=== PATIENT | male | born 1945 | race Caucasian/White ===

== ENCOUNTER 2019-04-08 10:00 | Outpatient (CLI) | payer BC, MEDICARE, SELFPAY ==
--- NOTE | ~2019-04-08 | CT_ITS ---
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 The dose-length product (DLP) was 168.81 mGy-cm. Ite rative reconstruction was used. COMPARISON: 01/14/2019 FINDINGS: There are surgical changes of esophagectomy and gastric pull-through. There is severe emphy sema. A 9 mm subpleural nodule of the right lower lobe previously measured 5 mm (image 91). There is no pleural effusion or pneumothorax. A right internal jugular Port-A-Cath ends with its tip at the torres perior cavoatrial junction. No pathologically enlarged thoracic lymph nodes are identified. The heart size is normal. Calcified coronary artery atherosclerosis is noted. There is ingested material withi n the intrathoracic portion of the stomach. A stent of the distal stomach has been removed. There is a partially imaged abdominal aortic endoluminal stent. A stent is also seen at the origin of the supe rior mesenteric artery. Changes related to thoracotomy are noted in several right ribs posteriorly. IMPRESSION: 1. Interval enlargement of a subpleural nodule of the right lower lobe concerning for metastatic dise ase. 2. Severe emphysema. 3. Changes of esophagectomy and gastric pull-through. Reviewed, dictated and finalized at location A. BER SUPERVISOR IMPRESSION: 1. Interval enlargement of a subpleural nodule of the right lower lobe concerni ng for metastatic disease. 2. Severe emphysema. 3. Changes of esophagectomy and gastric pull-through.
== END 2019-04-08 10:01 | disposition home or self-care (01) ==
LOC: ANHIMG 10:06
PROVIDERS: Visit Provider Internal Medicine Hematology & Oncology
DX: C15.5 Malignant neoplasm of lower third of esophagus (principal); J43.9 Emphysema, unspecified; R91.1 Solitary pulmonary nodule
CPT/HCPCS: 71260; Q9967

== ENCOUNTER 2019-04-16 10:54 | Outpatient (CLI) | payer BC, MEDICARE, SELFPAY ==
--- NOTE | ~2019-04-16 | PE_ITS ---
EXAMINATION: PET skull to mid thigh DATE: 04/16/2019 14:39 INDICATION: Solitary pulmonary nodule. Malignant neoplasm of lower third of esophagus. TECHNIQUE: Blood glucose level was 115 mg/dL. 8.475 mCi of 18-fluorodeoxyglucose (18-FDG) was adminis tered i.v. Low dose computed tomography (CT) images were acquired from the base of the brain to the p roximal thighs for attenuation correction and anatomic localization. Automated exposure control was e mployed. Dose-length product (DLP) was 348 mGy-cm. Positron emission tomography (PET) images were acq uired in the same distribution. COMPARISON: Chest CT 04/08/2019, 01/14/2019, PET CT 01/28/2018 FINDINGS: Head/neck: There is increased activity in the oral cavity, oropharynx, floor of mouth, and glottis wi thout CT correlate, likely physiologic. There are no pathologically enlarged lymph nodes. Chest: There is severe emphysema. Calcified pulmonary nodules and calcified hilar lymph nodes are con sistent with old granulomatous disease. There is a 9 mm nodule in right lower lobe with maximum SUV o f 2.2. There is mild scarring at the lung apices. No pleural effusion. The heart size is normal. Ther e are coronary artery calcifications. No pericardial effusion. There is ectasia of ascending aorta me asuring 4.7 cm. There are changes of esophagectomy and gastric pull-through. There is a right interna l jugular port with tip at superior cavoatrial junction. Abdomen/pelvis/proximal thighs: The liver is normal. Calcifications in the spleen are consistent with old granulomatous disease. The pancreas, adrenal glands are normal. There is severe atrophy of right kidney. There are cysts in the kidneys measuring up to 2.7 cm on the right. There is a 6.6 cm fusifo rm aneurysm of infrarenal aorta with stent graft in expected position. There are stents in superior m esenteric artery and left renal artery. The prostate is mildly enlarged. There are no dilated loops o f bowel. There are no pathologically enlarged lymph nodes. There is no free intraperitoneal fluid. Th ere are changes of anterior and posterior fusion procedures in lumbar spine. IMPRESSION: 1. 9 mm pulmonary nodule with maximum SUV of 2.2, increased from 5 mm on 01/14/2019, most likely benig n. Noncontrast chest CT is recommended in 3 months. 2. Severe emphysema. 3. 6.6 cm fusiform aneurysm of infrarenal aorta with stent graft in expected position, decreased from 8.1 cm on 01/28/2018. Reviewed, dictated and finalized at location A. ERN MAKER PROGRAMER IMPRESSION: 1. 9 mm pulmonary nodule with maximum SUV of 2.2, increased from 5 mm on 019, most likely benign. Noncontrast chest CT is recommended in 3 months. 2. Severe emphysema. 3. 6.6 cm fusiform aneurysm of infrarenal aorta with stent graft in expected po sition, decreased from 8.1 cm on 01/28/2018.
[2019-04-16 11:31] LABS: Glucose Point of Care 115 (65-105)
== END 2019-04-16 10:55 | disposition home or self-care (01) ==
PROVIDERS: Visit Provider Radiology Radiation Oncology
DX: C15.5 Malignant neoplasm of lower third of esophagus (principal); R91.1 Solitary pulmonary nodule; J43.9 Emphysema, unspecified; I71.4 Abdominal aortic aneurysm, without rupture; Z96.0 Presence of urogenital implants
CPT/HCPCS: 78815; A9552

== ENCOUNTER 2019-07-21 13:00 | Outpatient (CLI) | payer BC, MEDICARE, SELFPAY ==
--- NOTE | ~2019-07-21 | CT_ITS ---
EXAMINATION: CT chest wo con EXAM DATE: 07/21/2019 13:52 INDICATION: Kidney, skin, esophageal cancer. Enlarging right lower lobe subpleural nodule. TECHNIQUE: Spiral CT of the chest without contrast. Axial, coronal and sagittal images were reviewe d. Coronal maximum intensity pixel images of chest reviewed. The dose-length product (DLP) for this examination was 184.92 mGy-cm. The exposure was tailored according to patient size (auto mA exposur e control), and iterative reconstruction (ASIR) was used as additional dose reduction technique. Comp arison is made to prior examination from 03/17/2018, 04/08/2019. FINDINGS: There is been continued interval enlargement of the right lower lobe nodule, now abuts the pleura and measures 7 x 9 mm, has some lobulation, spiculation, likely malignancy. There are scatter ed calcified granulomas. There is moderate to severe emphysema. Right-sided Chemo-Port with intact li ne. There are no pleural or pericardial effusions. Tracheobronchial tree is patent. There is no mediastinal, hilar or axillary lymphadenopathy. There is no pneumothorax. Heart normal in size. T he ascending aorta measures 4.7 cm at the level of the right main pulmonary artery, unchanged. There is moderate coronary arterial calcification, arterial sclerosis. There is gastric pull-through. Ther e is upper abdominal endograft, celiac and left renal artery stents. Stimulator pack in the right pos terior paraspinal musculature. There is mild thoracic spondylosis without osteoblastic or osteolytic lesions identified. IMPRESSION: 1. Increase in size of lobular spiculated right lower lobe nodule likely malignant/metastatic. 2. Moderate to severe emphysema. 3. Ascending aortic aneurysm. 4. Surgical changes. Reviewed, dictated and finalized at location A. IMPRESSION: 1. Increase in size of lobular spiculated right lower lobe nodule likely malig nant/metastatic. 2. Moderate to severe emphysema. 3. Ascending aortic aneurysm. 4. Surgical changes.
== END 2019-07-21 13:01 | disposition home or self-care (01) ==
PROVIDERS: PCP Internal Medicine; Visit Provider Radiology Radiation Oncology
DX: C15.5 Malignant neoplasm of lower third of esophagus (principal); R91.1 Solitary pulmonary nodule; J43.9 Emphysema, unspecified; I71.2 Thoracic aortic aneurysm, without rupture
CPT/HCPCS: 71250

== ENCOUNTER 2019-08-04 09:17 | Outpatient (CLI) | payer BC, MEDICARE, SELFPAY ==
[2019-08-04 09:38] LABS: Mean Platelet Volume 9.3 fl (7.4-10.4); Platelet Count Result 162 k/mm3 (150-375)
== END 2019-08-04 09:18 | disposition home or self-care (01) ==
PROVIDERS: PCP Internal Medicine; Visit Provider Radiology Radiation Oncology
DX: R91.8 Other nonspecific abnormal finding of lung field (principal)
CPT/HCPCS: 36415; 85049; 85610

== ENCOUNTER 2019-08-07 11:32 | Outpatient (CLI) | payer BC, MEDICARE, SELFPAY ==
[2019-08-07] VITALS (12 sets, daily range): BP systolic 115–141; BP diastolic 74–100; PULSE 54–61; RESP 14–16; O2SAT 96–100
--- NOTE | ~2019-08-07 | XR_ITS ---
EXAMINATION: XR chest 1V portable INDICATION: Postbiopsy pneumothorax TECHNIQUE: Portable AP chest at 1701 hours COMPARISON: 1505 hours FINDINGS: A tiny right-sided pneumothorax persists which appears to slightly increase in volume with a more visible pleural line seen in the lateral aspect of the lower right thorax. No focal airspace o pacities are identified. There is no pleural effusion. The cardiomediastinal silhouette is normal. A right internal jugular Port-A-Cath ends with its tip in the distal superior vena cava. There is a par tially imaged endoluminal abdominal aortic stent graft. IMPRESSION: 1. Tiny right-sided pneumothorax with slight increase in size. Reviewed, dictated and finalized at location A.
--- NOTE | ~2019-08-07 | CT_ITS ---
EXAMINATION: CT biopsy lung DATE: 08/07/2019 14:16 INDICATION: Right lower lobe nodule TECHNIQUE: The procedure including the risks and benefits was discussed with the patient. Risks discu ssed included infection, approximately 1/20 risk of symptomatic hemorrhage beyond mild hemoptysis, ap proximately 1/3 risk of pneumothorax, and approximately 1/10 risk of pneumothorax severe enough to wa rrant chest tube placement. The patient understood the risks and agreed to proceed. The patient was p laced prone. The skin overlying the posterior right thorax was prepped and draped in sterile fashion . Anesthetic was administered with 1% lidocaine subcutaneously. A 19 gauge outer needle was advance d under CT guidance to the lesion of interest. A 20 gauge core biopsy needle was then used to obtain 3 core biopsy specimens. Scant tissue was obtained on the first biopsy and possibly on the second bio psy. There was no resistance to advancement of the biopsy needle in the third attempted biopsy with n o discernible tissue. CT images obtained after the third biopsy demonstrated development of a small r ight pneumothorax with retraction of the long from the guide needle tip. The pneumothorax was manuall y aspirated and repeat CT images were obtained which demonstrated decrease in the rate of pneumothora x accumulation. The pneumothorax was again manually aspirated and the needle removed. A sterile dress ing was applied and the patient placed in supine position. Patient's oxygen saturations remained 98-9 9% on room air throughout. No pneumothorax is discernible on the subsequent post procedure chest radi ograph. The dose-length product was 213.22 mGy-cm. FINDINGS: CT images demonstrate the outer needle tip was within approximately 1 cm subpleural nodule at the periphery of the right lower lobe. Final images demonstrate a small right pneumothorax. Severe emphysema.. IMPRESSION: 1. Successful CT-guided biopsy of a 1 cm right lower lobe nodule yielding scant tissue. Additional ti ssue was unable to be obtained due to the development of a small right pneumothorax which was manuall y aspirated through the guide needle. Reviewed, dictated and finalized at location A. IMPRESSION: 1. Successful CT-guided biopsy of a 1 cm right lower lobe nodule yielding scant tissue. Additional tissue was unable to be obtained due to the development of a small right pneumothorax which was manually aspirated through the guide needl e.
--- NOTE | ~2019-08-07 | XR_ITS ---
EXAMINATION: XR chest 1V portable DATE: 08/07/2019 15:04 INDICATION: Status post percutaneous biopsy of a right lower lobe nodule. TECHNIQUE: frontal view of the chest was obtained. COMPARISON: Chest radiograph dated 08/07/2019 at 1:49 PM FINDINGS: Tiny right apical pneumothorax with 5 mm separation between the pleural margins. Emphysema. Subtle no dular opacity projecting over the posterior right ninth rib corresponding to the biopsied lesion and concerning for malignancy. No pleural effusion or left-sided pneumothorax. The cardiomediastinal silh ouette is normal. No interval change in the previously described postoperative changes. IMPRESSION: 1. Very small right apical pneumothorax. 2. Right lower lobe nodule concerning for malignancy. 3. Emphysema. Reviewed, dictated and finalized at location A.
--- NOTE | ~2019-08-07 | XR_ITS ---
EXAMINATION: XR chest 1V DATE: 08/07/2019 13:52 INDICATION: Status post percutaneous biopsy of a right lower lobe nodule TECHNIQUE: frontal view of the chest was obtained. COMPARISON: Chest radiograph dated 09/22/[address] dated 07/31/2019 FINDINGS: Hyperexpansion of lungs with increased lucency and architectural distortion consistent with emphysema . Subtle nodular opacity projecting over the right posterior ninth rib likely representing the biopsi ed nodule of concern. There are few small scattered calcified pulmonary nodules along with calcified bilateral hilar lymph nodes consistent with old granulomatous disease. No other focal airspace opaci ties, pulmonary edema, pleural effusion or pneumothorax. The cardiomediastinal silhouette is normal. Right internal jugular central venous port catheter with distal tip at the caudal superior vena cava. Cephalad portion of an abdominal aortic endoluminal stent graft is seen at the level of the thoracic hiatus. An electronic device projects over the lower thoracic spine. A few old lateral right rib fra ctures, one with plate and screw fixation. Surgical clips project over the posterior mediastinum like ly related to prior esophagectomy and gastric pull-through. IMPRESSION: 1. No visible pneumothorax or other acute cardiopulmonary disease post biopsy of a right lower lobe n odule which is concerning for primary bronchogenic carcinoma. Reviewed, dictated and finalized at location A. IMPRESSION: 1. No visible pneumothorax or other acute cardiopulmonary disease post biopsy o f a right lower lobe nodule which is concerning for primary bronchogenic carcin maru.
--- NOTE | ~2019-08-07 | XR_ITS ---
EXAMINATION: XR chest 1V portable INDICATION: Postbiopsy pneumothorax TECHNIQUE: Portable AP chest at 1802 hours COMPARISON: 1701 hours FINDINGS: The previously described right-sided pneumothorax is no longer evident. The lungs are free of acute opacities. There is no pleural effusion. A right internal jugular Port-A-Cath ends with its tip in the distal superior vena cava. There is a partially imaged abdominal aortic stent graft. The c ardiomediastinal silhouette is normal. IMPRESSION: 1. No persistent pneumothorax identified. Reviewed, dictated and finalized at location A.
--- NOTE | 2019-08-07 17:28 | SUR.PHASEII ---
[address] ames about last chest xray, pt doesn't meet discharge criteria will do another chest xray at 1800
--- NOTE | 2019-08-07 18:42 | SUR.PHASEII ---
1800: Dr. Prado said most recent chest x-ray improved from the last one and patient was ok to discharge home. IV was d/c and discharge instructions were given to patient. , Rosa, was contacted to come and pick patient up at main entrance of hospital.
== END 2019-08-07 11:33 | disposition home or self-care (01) ==
PROVIDERS: Radiology Diagnostic Radiology; PCP Internal Medicine; Visit Provider Radiology Radiation Oncology
DX: R91.1 Solitary pulmonary nodule (principal)
CPT/HCPCS: 32405; 71045; 77012; 88305

== ENCOUNTER 2019-09-01 09:05 | Outpatient (CLI) | payer BC, MEDICARE, SELFPAY ==
--- NOTE | ~2019-09-01 | PE_ITS ---
EXAMINATION: PET skull to mid thigh DATE: 09/01/2019 11:20 INDICATION: Mass of lower lobe of right lung. Esophageal cancer. TECHNIQUE: Blood glucose level was 100 mg/dL. 9.645 mCi of 18-fluorodeoxyglucose (18-FDG) was adminis tered i.v. Low dose computed tomography (CT) images were acquired from the base of the brain to the p roximal thighs for attenuation correction and anatomic localization. Automated exposure control was e mployed. Dose-length product (DLP) was 339 mGy-cm. Positron emission tomography (PET) images were acq uired in the same distribution. COMPARISON: PET CT 04/16/2019, 01/28/18 FINDINGS: Head/neck: There is increased activity in the oral pharynx, oral cavity, sublingual glands, and glott is without CT correlate, likely physiologic. There are no pathologically enlarged lymph nodes. Chest: There is moderate emphysema. Calcified pulmonary nodules and calcified hilar and mediastinal l ymph nodes are consistent with old granulomatous disease. There is a 1.1 cm nodule in right lung lowe r lobe with maximum SUV of 2.4. No pleural effusion. The heart size is normal. There are coronary art brittany calcifications. There is ectasia of ascending aorta measuring 4.4 cm. There is a right internal j ugular port with tip at superior cavoatrial junction. There are old right rib fractures. Abdomen/pelvis/proximal thighs: The liver and gallbladder are normal. Calcifications in the spleen ar e consistent with old granulomatous disease. The pancreas, and adrenal glands are normal. There is mo derate atrophy of right kidney. There are cysts in the kidneys measuring up to 2.1 cm on the right. T here is a 1.9 cm hyperdense mass in right kidney. There is a 6.4 cm fusiform infrarenal aortic aneury sm with stent graft in expected position. The prostate is mildly enlarged. There are no dilated loops of bowel. There are changes of esophagectomy and gastric pull-through procedure. There are no pathol ogically enlarged lymph nodes. There is no free intraperitoneal fluid. There are changes of anterior and posterior fusion procedures in lumbar spine. A bone stimulator is noted. IMPRESSION: 1. 1.1 cm nodule in right lung lower lobe with maximum SUV of 2.4 and recent nondiagnostic biopsy, in creased from 0.9 cm on 04/16/19. This finding is indeterminate for malignancy. 2. Moderate emphysema. 3. 1.9 cm hyperdense right kidney mass, stable from 01/28/18. This finding may be a hemorrhagic cyst or less likely a solid neoplasm. Abdomen CT without and with contrast is recommended. 4. 6.4 cm fusiform infrarenal aortic aneurysm with stent graft in expected position, stable from 2019. Reviewed, dictated and finalized at location A. IMPRESSION: 1. 1.1 cm nodule in right lung lower lobe with maximum SUV of 2.4 and recent no ndiagnostic biopsy, increased from 0.9 cm on 04/16/19. This finding is indetermin ate for malignancy. 2. Moderate emphysema. 3. 1.9 cm hyperdense right kidney mass, stable from 01/28/18. This finding may be a hemorrhagic cyst or less likely a solid neoplasm. Abdomen CT without and w ith contrast is recommended. 4. 6.4 cm fusiform infrarenal aortic aneurysm with stent graft in expected posi tion, stable from 04/16/2019.
[2019-09-01 09:41] LABS: Glucose Point of Care 100 (65-105)
== END 2019-09-01 09:06 | disposition home or self-care (01) ==
PROVIDERS: PCP Internal Medicine; Visit Provider Radiology Radiation Oncology
DX: C15.5 Malignant neoplasm of lower third of esophagus (principal); N28.89 Other specified disorders of kidney and ureter; R91.8 Other nonspecific abnormal finding of lung field; J43.9 Emphysema, unspecified; I71.4 Abdominal aortic aneurysm, without rupture
CPT/HCPCS: 78815; A9552

== ENCOUNTER 2019-10-29 11:53 | Outpatient (CLI) | payer BC, MEDICARE, SELFPAY ==
[2019-10-29 12:33] LABS: Basophils Absolute Auto 0.1 K/mm3 (0.0-0.1); Basophils Percent Auto 0.9 % (0.2-1.2); Eosinophils Absolute Auto 0.6 K/mm3 (0-0.3); Eosinophils Percent Auto 8.1 % (0-4.4); Hematocrit 42.3 % (42.0-52.0); Hemoglobin 13.7 g/dL (14.0-18.0); Immature Granulocyte Absolute 0.01 K/mm3 (0.00-0.031); Immature Granulocyte Percent A 0.1 % (0-0.5); Lymphocytes Absolute Auto 1.22 K/mm3 (0.9-3.2); Lymphocytes Percent Auto 15.9 % (18.3-44.2); Mean Corpuscular HGB Conc 32.4 g/dl (32-36); Mean Corpuscular Volume 92.6 fl (80-100); Mean Platelet Volume 9.2 fl (7.4-10.4); Monocytes Absolute Auto 0.8 K/mm3 (0.1-0.6); Monocytes Percent Auto 10.2 % (2.6-8.5); Neutrophils Percent Auto 64.8 % (45.5-73.1); Platelet Count Result 234 k/mm3 (150-375); Red Blood Count 4.57 M/mm3 (4.6-6.20); Red Cell Distribution Width 14.7 % (11.5-14.5); White Blood Count 7.7 K/mm3 (4.5-10.0)
[2019-10-29 15:12] LABS: Alanine Aminotransferase 16 U/L (4-50); Albumin Level 4.6 g/dL (3.5-5.1); Alkaline Phosphatase 123 U/L (38-126); Anion Gap 8 mmol/L (8-16); Aspartate Amino Transferase 23 U/L (17-59); Bilirubin,Total 0.6 mg/dL (0.2-1.3); Blood Urea Nitrogen 13 mg/dL (9-20); Calcium 9.8 mg/dL (8.4-10.2); Carbon Dioxide 29 mmol/L (22-30); Chloride 98 mmol/L (98-107); Estimated Glomerular Filt Rate 59; Glucose 100 mg/dL (75-110); Potassium 4.7 mmol/L (3.4-5.0); Sodium 135 mmol/L (137-145)
[2019-10-29 15:24] LABS: Free T4 Free Thyroxine 1.53 ng/mL (0.78-2.19)
[2019-11-02 21:25] LABS: Vitamin D 1,25 (OH)2 Total 39 pg/mL (18-72); Vitamin D2 1,25 (OH)2 <8 pg/mL; Vitamin D3 1,25 (OH)2 39 pg/mL
[2019-11-03 05:48] LABS: Homocysteine 32.5 umol/L (<11.4)
== END 2019-10-29 11:54 | disposition home or self-care (01) ==
PROVIDERS: PCP Internal Medicine; Visit Provider Internal Medicine
DX: E55.9 Vitamin D deficiency, unspecified (principal); R79.89 Other specified abnormal findings of blood chemistry; E03.9 Hypothyroidism, unspecified; I10 Essential (primary) hypertension
CPT/HCPCS: 36415; 80053; 82652; 83090; 84439; 84443; 85025

== ENCOUNTER 2019-12-01 13:43 | Outpatient (CLI) | payer BC, MEDICARE, SELFPAY ==
[2019-12-01 14:40] LABS: Cholesterol 152 mg/dL (0-200); HDL Direct 57 mg/dL; Triglycerides 167 mg/dL (<150)
[2019-12-01 14:51] LABS: LDL Cholesterol Direct 67 mg/dL
[2019-12-01 15:12] LABS: Thyroid Stimulating Hormone 0.022 uIU/mL (0.465-4.680)
== END 2019-12-01 13:44 | disposition home or self-care (01) ==
PROVIDERS: PCP Internal Medicine; Visit Provider Internal Medicine Hematology & Oncology
DX: Z79.899 Other long term (current) drug therapy (principal); E78.2 Mixed hyperlipidemia
CPT/HCPCS: 36415; 80061; 84443

== ENCOUNTER 2019-12-09 10:23 | Outpatient (CLI) | payer BC, MEDICARE, SELFPAY | END 2019-12-09 10:24 | disposition home or self-care (01) | LOC: ANHLAB 10:25 | PROVIDERS: PCP Internal Medicine; Visit Provider Internal Medicine | DX: E03.9 Hypothyroidism, unspecified (principal); Z79.899 Other long term (current) drug therapy | CPT/HCPCS: 36415; 84439 ==

== ENCOUNTER 2019-12-14 12:58 | Outpatient (CLI) | payer BC, MEDICARE, SELFPAY ==
--- NOTE | ~2019-12-14 | CT_ITS ---
EXAMINATION:CT chest w con DATE: 12/14/2019 14:02 INDICATION: Malignant neoplasm of lower third of esophagus. TECHNIQUE: Computed tomography (CT) of the chest was performed with 100 mL Omnipaque 350 intravenous contrast. Automated exposure control and iterative reconstruction technique were employed. The dose-l ength product (DLP) was 494.38 mGy-cm. COMPARISON: PET CT 09/01/2019, 04/16/19 FINDINGS: There is severe emphysema. There is a 1.1 cm nodule in right lower lobe. Calcified pulmonar y nodules and calcified hilar and mediastinal lymph nodes are consistent with old granulomatous disea se. No pleural effusion. There is a right internal jugular port with tip at superior cavoatrial junct ion. There are changes of esophagectomy and gastric pull-through procedure. There is a stent at the g astroesophageal junction. There is ectasia of ascending aorta measuring 4.5 cm. The heart size is nor mal. There are coronary artery calcifications. No pericardial effusion. There is mild thoracic spondy losis. There are changes from right-sided thoracotomy. There is plate and screw fixation of a rib. IMPRESSION: 1. 1.1 cm nodule in right lower lobe, stable from 09/01/2019 and increased from 0.9 cm on 04/16/19 with maximum SUV of 2.4 on 09/01/19. This finding is indeterminate for malignancy. 2. Severe emphysema. Reviewed, dictated and finalized at location A. OWS DESKTOP SUPPORT IMPRESSION: 1. 1.1 cm nodule in right lower lobe, stable from 09/01/2019 and increased from 0.9 cm on 04/16/19 with maximum SUV of 2.4 on 09/01/19. This finding is indetermin ate for malignancy. 2. Severe emphysema.
--- NOTE | ~2019-12-14 | CT_ITS ---
EXAMINATION: CT abdomen wo/w con DATE: 12/14/2019 14:00 INDICATION: Right kidney mass. TECHNIQUE: Computed tomography (CT) of the abdomen was performed without and with 100 mL Omnipaque 35 0 intravenous contrast. Automated exposure control and iterative reconstruction technique were employ ed. The dose-length product was 494.38 mGy-cm. COMPARISON: PET CT 09/01/2019 FINDINGS: There is 8 mm cyst in the liver. The gallbladder is normal. Calcifications in the spleen ar e consistent with old granulomatous disease. The pancreas and adrenal glands are normal. There is sev ere atrophy of right kidney. There are cysts in the kidneys measuring up to 2.7 cm on the right. Ther e is a 2.0 cm hemorrhagic cyst in right kidney. There is a 6.2 cm fusiform aneurysm of infrarenal aor ta with stent graft in expected position. Partially visualized is a stent in right common iliac arter y. There are stents in left renal artery and superior mesenteric artery. There are no dilated loops o f bowel. There are changes of esophagectomy and gastric pull-through procedure. There are no patholog ically enlarged lymph nodes. There is no free intraperitoneal fluid. There is severe lumbar spondylos is. There are changes of posterior fusion procedure in lumbar spine. A bone stimulator is noted. IMPRESSION: 1. Benign cysts in the kidneys. 2. Stable 6.2 cm fusiform aneurysm of infrarenal aorta with stent graft in expected. Reviewed, dictated and finalized at location A. AVER PANTOGRAPH IMPRESSION: 1. Benign cysts in the kidneys. 2. Stable 6.2 cm fusiform aneurysm of infrarenal aorta with stent graft in expe cted.
== END 2019-12-14 12:59 | disposition home or self-care (01) ==
LOC: ANHIMG 13:02
PROVIDERS: PCP Internal Medicine; Visit Provider Radiology Radiation Oncology
DX: C15.5 Malignant neoplasm of lower third of esophagus (principal); R91.8 Other nonspecific abnormal finding of lung field; J43.9 Emphysema, unspecified; N28.1 Cyst of kidney, acquired; I71.4 Abdominal aortic aneurysm, without rupture
CPT/HCPCS: 71260; 74170; Q9967

== ENCOUNTER 2020-03-17 13:07 | Outpatient (CLI) | payer BC, MEDICARE, SELFPAY ==
--- NOTE | ~2020-03-17 | CT_ITS ---
EXAMINATION: CT diagnostic chest w con DATE: 03/17/2020 14:23 INDICATION: Cancer distal third of the esophagus TECHNIQUE: Computed tomography (CT) of the chest was performed with 75 cc Omnipaque 350 intravenous c ontrast. The dose-length product was 163.44 mGy-cm. Automated exposure control and iterative reconstr uction technique were employed. COMPARISON: CT dated 12/14/2019 FINDINGS: There are surgical changes of esophagectomy with gastric pull-through. There is a stent at the gastroesophageal junction 3 contained in the stents. There is stable ectasia of the ascending tho racic aorta measuring 4.5 cm. Heart size is normal. There are liver and left renal cysts. There are s cattered calcified granulomas. Severe emphysema. Enlarging 1.4 cm right lower lobe nodule with spicul ated margins, likely malignant. This is increased bone 0.9 cm on 04/16/2019. No endobronchial lesions. No osteolytic or osteoblastic lesion. Partially visualized abdominal aortic endovascular stent noted. There is a port catheter, tip in the SVC. No thoracic lymphadenopathy. IMPRESSION: 1. Enlarging 1.4 cm right lower lobe nodule with spiculated margins, likely malignant. Consider repea t percutaneous biopsy or pet/CT examination. 2: Severe emphysema. Reviewed, dictated and finalized at location A. LINER IMPRESSION: 1. Enlarging 1.4 cm right lower lobe nodule with spiculated margins, likely mal ignant. Consider repeat percutaneous biopsy or pet/CT examination. 2: Severe emphysema.
[2020-03-17 14:15] LABS: Estimated Glomerular Filt Rate 54
[2020-03-17 18:50] LABS: Hemoglobin A1C 5.8 % (<5.7)
[2020-03-17 19:25] LABS: Alanine Aminotransferase 59 U/L (4-50); Albumin Level 4.1 g/dL (3.5-5.1); Alkaline Phosphatase 116 U/L (38-126); Anion Gap 10 mmol/L (8-16); Aspartate Amino Transferase 72 U/L (17-59); Bilirubin,Total 0.5 mg/dL (0.2-1.3); Blood Urea Nitrogen 17 mg/dL (9-20); Calcium 9.5 mg/dL (8.4-10.2); Carbon Dioxide 22 mmol/L (22-30); Chloride 104 mmol/L (98-107); Cholesterol 131 mg/dL (0-200); Estimated Glomerular Filt Rate 59; Glucose 110 mg/dL (75-110); HDL Direct 55 mg/dL; Potassium 4.4 mmol/L (3.4-5.0); Sodium 136 mmol/L (137-145); Triglycerides 154 mg/dL (<150)
[2020-03-17 19:36] LABS: LDL Cholesterol Direct 57 mg/dL
[2020-03-17 19:43] LABS: Free T4 Free Thyroxine 2.47 ng/mL (0.78-2.19)
[2020-03-17 19:55] LABS: Thyroid Stimulating Hormone < 0.015 uIU/mL (0.465-4.680)
[2020-03-20 22:24] LABS: Homocysteine 23.3 umol/L (<11.4)
[2020-03-21 10:17] LABS: Vitamin D 1,25 (OH)2 Total 24 pg/mL (18-72); Vitamin D2 1,25 (OH)2 <8 pg/mL; Vitamin D3 1,25 (OH)2 24 pg/mL
== END 2020-03-17 13:08 | disposition home or self-care (01) ==
PROVIDERS: PCP Internal Medicine; Visit Provider Internal Medicine Hematology & Oncology
DX: C15.5 Malignant neoplasm of lower third of esophagus (principal); R91.8 Other nonspecific abnormal finding of lung field; J43.9 Emphysema, unspecified; E03.9 Hypothyroidism, unspecified; E55.9 Vitamin D deficiency, unspecified; E78.2 Mixed hyperlipidemia; I10 Essential (primary) hypertension; R79.89 Other specified abnormal findings of blood chemistry; Z79.899 Other long term (current) drug therapy
CPT/HCPCS: 71260; 80053; 80061; 82652; 83036; 83090; 84439; 84443; Q9967

== ENCOUNTER 2020-09-01 13:31 | Outpatient (CLI) | payer BC, MEDICARE, SELFPAY ==
[2020-09-01 16:56] LABS: Thyroid Stimulating Hormone 0.188 uIU/mL (0.465-4.680)
[2020-09-01 19:05] LABS: Free T4 Free Thyroxine 1.78 ng/mL (0.78-2.19)
== END 2020-09-01 13:32 | disposition home or self-care (01) ==
LOC: ANHLAB 13:35
PROVIDERS: PCP Internal Medicine; Visit Provider Internal Medicine
DX: E03.9 Hypothyroidism, unspecified (principal)
CPT/HCPCS: 36415; 84439; 84443

== ENCOUNTER 2020-09-06 07:53 | Outpatient (CLI) | payer BC, MEDICARE, SELFPAY ==
--- NOTE | ~2020-09-06 | PE_ITS ---
EXAMINATION: PET skull to mid thigh DATE: 09/06/2020 10:15 INDICATION: Solitary pulmonary nodule. TECHNIQUE: Blood glucose level was 100 mg/dL. 9.645 mCi of 18-fluorodeoxyglucose (18-FDG) was adminis tered i.v. Low dose computed tomography (CT) images were acquired from the base of the brain to the p roximal thighs for attenuation correction and anatomic localization. Positron emission tomography (PE T) images were acquired in the same distribution beginning 62 minutes after injection. Images includi ng fused PET/CT images were reconstructed in axial, coronal, and sagittal planes. Automated exposure control technique was employed. The dose-length product was 335.30mGy-cm. COMPARISON: PET/CT dated 09/01/[address] dated 12/14/2019 FINDINGS: Head/neck: There is symmetric increased activity in the oral cavity, palatine tonsils, parotid glands, submandi bular glands, laryngeal muscles and ocular muscles without CT correlate, likely physiologic. No patho logically enlarged cervical lymphadenopathy or suspicious foci of increased FDG uptake in the visuali zed head or neck. Chest: Right internal jugular central venous catheter with distal tip at the caudal superior vena cava. Ther e is stenting of the distal esophagus where there is surrounding wall thickening with mild associated FDG uptake with maximal SUV of 3.2 consistent with given history of esophageal cancer. Moderate to s evere emphysema. Calcified pulmonary nodules and calcified hilar and mediastinal lymph nodes consiste nt with old granulomatous disease. The prior FDG avid 1.1 cm right lower lobe nodule has decreased in size to 4 mm with no appreciable associated FDG activity. Additional region of couple subcentimeter nodules with surrounding groundglass opacity in the superior segment of the left upper lobe posterior to the aorta which also demonstrated increased FDG uptake on prior study has also resolved. No new o r enlarging pulmonary nodules or other abnormal FDG avid lung lesions. Heart size is normal. No peric ardial effusion. Mildly aneurysmal ascending thoracic aorta measuring up to 4.6 cm. No pathologically enlarged or FDG avid thoracic lymphadenopathy. Abdomen/pelvis/proximal thighs: Physiologic renal accumulation and excretion of FDG activity in the kidneys, bladder and along portio ns of ureters. There is moderate right renal atrophy. Bilateral renal cysts, the largest measuring 2 cm on the left. No significant interval change in a 1.8 cm proteinaceous/hemorrhagic cyst at the uppe r pole of the right kidney which demonstrated characteristic hypoattenuation and no enhancement on pr ior pre and postcontrast CT. Normal degree and heterogenous pattern of increased uptake throughout th e liver without radiologic correlate or dominant FDG avid lesion. The gallbladder, pancreas, spleen a nd bilateral adrenal glands are normal. Splenic calcification consistent with old granulomatous disea se. Mild uptake scattered throughout the bowels without radiologic correlate, also likely physiologic . Prostatomegaly. No other abnormal foci of increased FDG uptake or pathologically enlarged lymphaden opathy in the abdomen, pelvis or proximal thighs. Abdominal aortic aneurysm with endoluminal stent gr afting beginning the level of the thoracic hiatus and extending into the bilateral common iliac arter ies. The aneurysm sac is unchanged measuring up to 6.3 cm in maximal diameter. Additional stenting at the origins of the superior mesenteric and left renal arteries. Musculoskeletal: Couple old healed posterior right rib fractures, one with plate and screw fixation. L4 and L5 laminec tomies and combined anterior and posterior spinal fusion at L4-S1 with bilateral vertical ford and ped icle screw fixation. There is also a likely bone stimulator device posterior to the lumbar spine with leads extending to the regions of the posterior fusion. Mild likely degenerative synovi
[2020-09-06 08:44] LABS: Glucose Point of Care 103 mg/dl (65-105)
== END 2020-09-06 07:54 | disposition home or self-care (01) ==
LOC: ANHIMG 07:59
PROVIDERS: PCP Internal Medicine; Visit Provider Internal Medicine
DX: R91.1 Solitary pulmonary nodule (principal)
CPT/HCPCS: 78815; A9552

== ENCOUNTER 2020-10-26 02:32 | Day surgery (SDC) | payer BC, MEDICARE, SELFPAY ==
[2020-10-13 12:22] VITALS: BMI 20.2
--- NOTE | 2020-10-26 07:51 | WPDANESEPPF ---
Anes - Initial Pre Proc Eval Procedure: Operation Date: 10/26/20 10:30 Proposed Procedures p Screening Colonoscopy - Arik Marin MD Date/Time: 10/26/20 07:51 Surgeon: Arik Marin MD Pre Op Diagnosis: hx of colon polyps Patient Data Age: 75 Gender: M Height: 1.8 m Weight: 66 kg Allergies Allergy/AdvReac Type Severity Reaction Status Date / Time No Known Allergies Allergy Verified 10/26/20 09:25 Home Medications Medication Instructions Recorded Confirmed Type aspirin [Aspir-81] 81 mg PO DAILY 11/28/18 10/13/20 History enalapril maleate 5 mg tablet See Rx Instructions .ROUTE 02/23/20 10/13/20 Rx .COMPLEX #180 tablet metoprolol tartrate 50 mg tablet See Rx Instructions .ROUTE 02/23/20 10/13/20 Rx .COMPLEX #270 tablet amlodipine 5 mg tablet See Rx Instructions .ROUTE 04/07/20 10/13/20 Rx .COMPLEX #90 tablet rosuvastatin 20 mg tablet See Rx Instructions .ROUTE 07/12/20 10/13/20 Rx .COMPLEX #90 tablet levothyroxine 125 mcg tablet 125 mcg PO DAILY #90 tablet 07/20/20 10/13/20 Rx Patient hx anesthesia problems: none Family hx anesthesia problems: none PMFSH Past Medical History Medical History (Updated 10/26/20 @ 09:49 by Arik Marin MD) AAA (abdominal aortic aneurysm) 2018 Benign essential hypertension Bilateral carotid artery stenosis BMI 20.0-20.9, adult BMI 21.0-21.9, adult Color vision deficiency Elevated homocysteine Encounter for Medicare annual wellness exam Encounter for routine adult health examination with abnormal findings Encounter for routine adult health examination without abnormal findings Encounter for special screening examination for neoplasm of prostate Giant cell carcinoma Hearing loss History of esophageal cancer Hx of renal artery stenosis Hx of renal cell cancer Hx of squamous cell carcinoma Hyperlipidemia Hypothyroidism (acquired) Impacted cerumen of right ear Lung nodule On group home drug therapy Personal history of nicotine dependence Surgical History Surgical History H/O endovascular stent graft for abdominal aortic aneurysm [facility] 2018 Family History Family History Father Family history of cardiovascular disease Family history of lung cancer Family history of heart disease in male family member before age 55 Mother Family history of dementia Other Diabetes mellitus Family history of malignant neoplasm Social History Social History Smoking packs per day: 1 Smoking cigarettes per day: 20.0 Years smoked: 56 Smoking pack-years: 56.00 Smoking status: Current every day smoker Tobacco type: cigarettes Second hand tobacco smoke exposure: Yes Alcohol intake: never Substance use: never Substance use type: does not use Gender identity (if verbalized by the patient): Male Sexual Orientation (if Verbalized by the Patient): Straight or Heterosexual Spiritual care concerns: No Anes - Eval Final PreProcedure Day of Procedure 10/26/20 07:51 Patient weight: normal Heart: regular rate and rhythm Lungs: clear to auscultation and normal air movement Airway: Mallampati scale class II Neurological: alert and oriented Last oral intake: >/= 8 hours ASA classification: III Emergent: no Anesthetic plan: proceed Anesthesia type and monitoring: general GIVS and standard monitoring Informed Consent: The patient's anesthetic plan and its attendant risks and benefits were discussed with the patient/family/POA. Questions were solicited and answers provided to the satisfaction of the patient/family/POA.
[2020-10-26 09:27] VITALS: BP 133/68; PULSE 50; RESP 20; TEMP 36.7; O2SAT 97
[2020-10-26] MEDS: LACTATED RINGERS 1,000 ML 150 ML IV CONT (09:39)
--- NOTE | 2020-10-26 09:47 | WPDGICN ---
Assessment and Plan Assessment and plan (1) History of colon polyps: Code(s): Z86.010 - Personal history of colonic polyps Status: Acute Assessment and Plan: Patient has a history of colon polyps most recently 2014. Plan is for follow-up surveillance colonoscopy at this time. (2) History of esophageal cancer: Code(s): Z85.01 - Personal history of malignant neoplasm of esophagus Status: Acute Assessment and Plan: Patient has a history of esophageal cancer distal portion of the esophagus status post resection. He now has a stent placed in this area followed at [facility]. (3) Hx of renal cell cancer: Code(s): Z85.528 - Personal history of other malignant neoplasm of kidney Status: Acute (4) AAA (abdominal aortic aneurysm): Qualifiers: Presence of rupture: without rupture Qualified Code(s): I71.4 - Abdominal aortic aneurysm, without rupture Code(s): I71.4 - Abdominal aortic aneurysm, without rupture Status: Acute (5) H/O endovascular stent graft for abdominal aortic aneurysm: Code(s): Z95.828 - Presence of other vascular implants and grafts Status: Acute GI Consult Note Consult date/time: 10/26/20 09:47 HPI: Tino Nunez is a 75 year old male Presents for colonoscopy. Patient has a history of colon polyp removed by Dr. Barnett in 2014. Patient reports his current weight appetite bowel movements normal. He denies abdominal pain. He has had no bleeding. Patient's past medical history is significant for cancer at the esophagogastric junction. He had resection. Subsequently had significant scar tissue in reports that in January 2020 had a stent placed. He continues to have modest difficulties and some accumulation of phlegm but is able to eat adequately. Additionally patient reports a history of abdominal aortic aneurysm for which she has had stenting in the past. He has a distant history of renal cell carcinoma in addition to his history of esophageal cancer. Review of Systems Review of Systems: All systems reviewed & are unremarkable except as noted in HPI and below [facility] Past Medical History Medical History (Updated 10/26/20 @ 09:49 by Arik Marin MD) AAA (abdominal aortic aneurysm) 2019 Benign essential hypertension Bilateral carotid artery stenosis BMI 20.0-20.9, adult BMI 21.0-21.9, adult Color vision deficiency Elevated homocysteine Encounter for Medicare annual wellness exam Encounter for routine adult health examination with abnormal findings Encounter for routine adult health examination without abnormal findings Encounter for special screening examination for neoplasm of prostate Giant cell carcinoma Hearing loss History of esophageal cancer Hx of renal artery stenosis Hx of renal cell cancer Hx of squamous cell carcinoma Hyperlipidemia Hypothyroidism (acquired) Impacted cerumen of right ear Lung nodule On nursing home drug therapy Personal history of nicotine dependence Surgical History Surgical History H/O endovascular stent graft for abdominal aortic aneurysm [facility] 2017 Family History Family History Father Family history of cardiovascular disease Family history of lung cancer Family history of heart disease in male family member before age 55 Mother Family history of dementia Other Diabetes mellitus Family history of malignant neoplasm Social History Social History Smoking packs per day: 1 Smoking cigarettes per day: 20.0 Years smoked: 56 Smoking pack-years: 56.00 Smoking status: Current every day smoker Tobacco type: cigarettes Second hand tobacco smoke exposure: Yes Alcohol intake: never Substance use: never Substance use type: does not use Living arrangements: with family [place]
[2020-10-26 10:28] VITALS: BP 85/52; PULSE 43; RESP 22; O2SAT 100
[2020-10-26 10:45] VITALS: BP 88/59; PULSE 44; RESP 21; O2SAT 96
[2020-10-26 10:47] VITALS: BP 127/85; PULSE 47; RESP 18; O2SAT 99
== END 2020-10-26 11:25 | disposition home or self-care (01) ==
PROVIDERS: PCP Internal Medicine; Visit Provider Internal Medicine Gastroenterology
PROC: 0DJD8ZZ Inspection of Lower Intestinal Tract, Via Natural or Artificial Opening Endoscopic (ICD-10-PCS; CPT 45378; principal; 2020-10-26 10:30)
DX: Z12.11 Encounter for screening for malignant neoplasm of colon (principal); D12.3 Benign neoplasm of transverse colon; K63.5 Polyp of colon; Z85.01 Personal history of malignant neoplasm of esophagus; Z85.528 Personal history of other malignant neoplasm of kidney; I71.4 Abdominal aortic aneurysm, without rupture; Z95.828 Presence of other vascular implants and grafts; I10 Essential (primary) hypertension; E78.5 Hyperlipidemia, unspecified; E03.9 Hypothyroidism, unspecified; I65.23 Occlusion and stenosis of bilateral carotid arteries; F17.210 Nicotine dependence, cigarettes, uncomplicated; Z79.82 Long term (current) use of aspirin
CPT/HCPCS: 45385; 88305; J2704; J7120

== ENCOUNTER 2020-11-14 13:54 | Outpatient (CLI) | payer BC, MEDICARE, SELFPAY ==
[2020-11-14 14:10] LABS: Basophils Absolute Auto 0.1 K/mm3 (0.0-0.1); Basophils Percent Auto 1.2 % (0.2-1.2); Eosinophils Absolute Auto 0.6 K/mm3 (0-0.3); Eosinophils Percent Auto 10.4 % (0-4.4); Hematocrit 41.5 % (42.0-52.0); Hemoglobin 13.2 g/dL (14.0-18.0); Immature Granulocyte Absolute 0.01 K/mm3 (0.00-0.031); Immature Granulocyte Percent A 0.2 % (0-0.5); Lymphocytes Absolute Auto 1.33 K/mm3 (0.9-3.2); Lymphocytes Percent Auto 21.9 % (18.3-44.2); Mean Corpuscular HGB Conc 31.8 g/dl (32-36); Mean Corpuscular Hemoglobin 30.2 pg (26-34); Mean Platelet Volume 9.1 fl (7.4-10.4); Monocytes Absolute Auto 0.6 K/mm3 (0.1-0.6); Neutrophils Absolute Auto 3.5 K/mm3 (1.3-6.7); Neutrophils Percent Auto 57.3 % (45.5-73.1); Platelet Count Result 160 k/mm3 (150-375); Red Blood Count 4.37 M/mm3 (4.6-6.20); Red Cell Distribution Width 13.7 % (11.5-14.5); White Blood Count 6.1 K/mm3 (4.5-10.0)
[2020-11-14 16:39] LABS: Alanine Aminotransferase 35 U/L (4-50); Albumin Level 4.7 g/dL (3.5-5.1); Alkaline Phosphatase 100 U/L (38-126); Anion Gap 9 mmol/L (8-16); Aspartate Amino Transferase 68 U/L (17-59); Bilirubin,Total 0.5 mg/dL (0.2-1.3); Blood Urea Nitrogen 10 mg/dL (9-20); Calcium 10.1 mg/dL (8.4-10.2); Carbon Dioxide 29 mmol/L (22-30); Chloride 101 mmol/L (98-107); Cholesterol 153 mg/dL (0-200); Estimated Glomerular Filt Rate 54; Glucose 101 mg/dL (65-110); HDL Direct 68 mg/dL; Potassium 4.6 mmol/L (3.4-5.0); Sodium 139 mmol/L (137-145); Triglycerides 89 mg/dL (<150)
[2020-11-14 16:50] LABS: LDL Cholesterol Direct 62 mg/dL
[2020-11-14 16:55] LABS: Free T4 Free Thyroxine 1.95 ng/mL (0.78-2.19)
[2020-11-14 17:09] LABS: Thyroid Stimulating Hormone 0.134 uIU/mL (0.465-4.680)
[2020-11-14 18:44] LABS: Hemoglobin A1C 5.9 % (<5.7)
[2020-11-18 16:31] LABS: Vitamin D 1,25 (OH)2 Total 42 pg/mL (18-72); Vitamin D2 1,25 (OH)2 <8 pg/mL; Vitamin D3 1,25 (OH)2 42 pg/mL
== END 2020-11-14 13:55 | disposition home or self-care (01) ==
LOC: ANHLAB 13:56
PROVIDERS: PCP Internal Medicine; Visit Provider Internal Medicine
DX: E78.2 Mixed hyperlipidemia (principal); I10 Essential (primary) hypertension; E03.9 Hypothyroidism, unspecified; Z79.899 Other long term (current) drug therapy; E55.9 Vitamin D deficiency, unspecified
CPT/HCPCS: 36415; 80053; 80061; 82652; 83036; 84439; 84443; 85025

== ENCOUNTER 2021-01-13 10:21 | Outpatient (CLI) | payer BC, MEDICARE, SELFPAY ==
--- NOTE | ~2021-01-13 | CT_ITS ---
EXAMINATION:CT diagnostic chest w con DATE: 01/13/2021 11:12 INDICATION: Cancer of distal third of esophagus. TECHNIQUE: Computed tomography (CT) of the chest was performed with 75 mL Omnipaque 350 intravenous c ontrast. Automated exposure control and iterative reconstruction technique were employed. The dose-le ngth product (DLP) was 154.50 mGy-cm. COMPARISON: Chest CT 03/17/2020 FINDINGS: There is severe emphysema. There is mild atelectasis in the lower lobes. Calcified pulmonar y nodules and calcified hilar and mediastinal lymph nodes are consistent with old granulomatous disea se. There is mild scarring at the lung apices. No pleural effusion. There is a right internal jugular port with tip in superior vena cava. There is ectasia of ascending aorta measuring 4.6 cm. The heart size is normal. No pericardial effusion. There are coronary artery calcifications. There are changes of esophagectomy and gastric pull-through procedure. There is a stent in the stomach. There is a radha nt in superior mesenteric artery. Partially visualized are a stent in the left renal artery and a radha nt graft in abdominal aorta. There is a 2.4 cm cyst in left kidney. There is no pulmonary embolus. Th ere are old right rib fractures, one with plate and screw fixation. Partially visualized is an implan t in the right erector spinae muscles. IMPRESSION: 1. No evidence of metastatic disease. 2. Severe emphysema. Reviewed, dictated and finalized at location A. N MACHINE OPERATOR
[2021-01-13 11:04] LABS: Estimated Glomerular Filt Rate 42
== END 2021-01-13 10:22 | disposition home or self-care (01) ==
LOC: ANHIMG 10:31
PROVIDERS: PCP Internal Medicine; Visit Provider Internal Medicine Hematology & Oncology
DX: C15.5 Malignant neoplasm of lower third of esophagus (principal); J43.9 Emphysema, unspecified
CPT/HCPCS: 71260; Q9967

== ENCOUNTER 2021-04-10 00:51 | Day surgery (SDC) | payer BC, MEDICARE, SELFPAY ==
--- NOTE | 2021-04-04 15:02 | PC.NURSE ---
Addendum entered by Eda Aguirre RN 04/04/21 15:06: ARRIVE AT 0900 FOR 1100 SURGERY ON 04/10/21 Original Note: Report to the Outpatient Waiting Room, entrance under the green pavilion located off [facility], at time on date . OR Time: . - You and your visitor will be asked a series of questions to screen for COVID 19 for your protection. - A mask is required within the hospital. Preoperative COVID Testing Requirements: No COVID Test needed if: (proof is required; if not received patient will have Rapid Test prior to entry) - Patient has received COVID Vaccine at least 14 days prior to procedure date or - Patient has positive COVID test result within last 90 days of surgery date. COVID Test needed if above criteria is not met If not COVID vaccinated a COVID test must be conducted within 72 hours of surgery and patient is asked to isolate self from time of testing until procedure. You will go to the [employer] [facility] for your COVID testing. The [employer] [facility] Testing site is located at the corner of [address] from [facility]. You will only be called if COVID results are positive and your surgeon may reschedule your elective surgery date. Patients may have clear liquids (water, carbonated beverages, clear teas, apple juice) until 3 hours prior to surgery with a maximum of 20 ounces. - No food from midnight until time of surgery - Infants may have breast milk until 4 hours before surgery, formula 6 hours prior to surgery. - Children will be allowed to drink immediately following surgery. If applicable, please bring a bottle or sippy cup to assist with drinking. Juice, water, soda, and popsicles are readily available. For infants on formula, please bring formula the day of surgery. Pacifiers are allowed. Take the following medications with a SIP of water the morning of surgery: _LEVOTHYROXINE, METOPROLOL Medications to discontinue per physician ____NONE Date to take last dose Please no make-up, nail sammarinese, hairspray, perfume, deodorant, or body powder the day of surgery. No jewelry (including any body piercings) or valuables the day of surgery, leave them at home. Please take a shower or bath the night before, or the morning of, surgery with an antibacterial soap. Wear comfortable, loose fitting clothing. Children are encouraged to wear pajamas. - Jewelry must be removed prior to entering the operating room. Rings and piercings that are not removed may be cut off. - The hospital will not accept responsibility for valuables. - Please leave all valuables, including medications, at home the day of surgery. If you are going home after surgery, a licensed corrugated fastener driver must drive you home. - NO public transportation without another adult. - We recommend that an adult stay with you for 24 hours following discharge. - We also recommend that you do not drive, make important decision, drink alcoholic beverages, or take any drugs that were not prescribed by your health care provider for at least 24 hours after your discharge time. For Pediatric surgeries, we recommend two adults accompany the child home (only one inside the building at this time). One visitor will be allowed to accompany the patient into the hospital. Patients visitor will be instructed to remain with patient at all times or leave the building. We will allow the visitor to come back to the postoperative area when patient is ready. Follow any additional instructions given to you from your surgeon. Telephone instructions given to _PATIENT and asked if any additional questions and then verbalized understanding. Patient advised to call surgeon office or pre surgery nurse liaison [phone] if any additional questions.
[2021-04-04 15:07] VITALS: BMI 19.5
--- NOTE | 2021-04-10 07:55 | WPDANESEPPF ---
Anes - Initial Pre Proc Eval Procedure: Operation Date: 04/10/21 11:00 Proposed Procedures p Removal Jay Cath - Hi Wood DO Date/Time: 04/10/21 07:55 Surgeon: Hi Wood DO Pre Op Diagnosis: CA of distal 3rd of esophagus Patient Data Age: 75 Gender: M Height: 1.8 m Weight: 63.65 kg Allergies Allergy/AdvReac Type Severity Reaction Status Date / Time No Known Allergies Allergy Verified 04/10/21 09:13 Home Medications Medication Instructions Recorded Confirmed Type aspirin [Aspir-81] 81 mg PO DAILY 11/28/18 04/10/21 History enalapril maleate 5 mg tablet See Rx Instructions .ROUTE 02/23/20 04/10/21 Rx .COMPLEX #180 tablet rosuvastatin 20 mg tablet See Rx Instructions .ROUTE 07/12/20 04/10/21 Rx .COMPLEX #90 tablet levothyroxine 125 mcg tablet See Rx Instructions .ROUTE 01/04/21 04/10/21 Rx .COMPLEX #90 tablet amlodipine 5 mg PO HS 04/04/21 04/10/21 History metoprolol tartrate 50 mg PO BID 04/04/21 04/10/21 History Patient hx anesthesia problems: none Family hx anesthesia problems: none Results Review: All pre-operative results and documents have been reviewed as part of the pre-operative evaluation. [facility] Past Medical History Medical History (Updated 11/10/20 @ 15:11 by Faith Zhou CMA) AAA (abdominal aortic aneurysm) 2018 Adult BMI 19-24 kg/sq m Benign essential hypertension Bilateral carotid artery stenosis BMI 20.0-20.9, adult BMI 21.0-21.9, adult Color vision deficiency Elevated homocysteine Encounter for Medicare annual wellness exam Encounter for routine adult health examination with abnormal findings Encounter for routine adult health examination without abnormal findings Encounter for special screening examination for neoplasm of prostate Giant cell carcinoma Hearing loss History of esophageal cancer Hx of renal artery stenosis Hx of renal cell cancer Hx of squamous cell carcinoma Hyperlipidemia Hypothyroidism (acquired) Impacted cerumen of right ear Lung nodule On shelter drug therapy Personal history of nicotine dependence Surgical History Surgical History H/O endovascular stent graft for abdominal aortic aneurysm [facility] 2018 Family History Family History Father Family history of cardiovascular disease Family history of lung cancer Family history of heart disease in male family member before age 55 Mother Family history of dementia Other Diabetes mellitus Family history of malignant neoplasm Social History Social History Smoking packs per day: 1 Smoking cigarettes per day: 20.0 Years smoked: 61 Smoking pack-years: 61.00 Smoking status: Current every day smoker Tobacco type: cigarettes Second hand tobacco smoke exposure: Yes Alcohol intake: never Substance use: never Substance use type: does not use Living arrangements: with family Gender identity (if verbalized by the patient): Male Sexual Orientation (if Verbalized by the Patient): Straight or Heterosexual Spiritual care concerns: No Anes - Eval Final PreProcedure Day of Procedure 04/10/21 07:55 Patient weight: thin Heart: regular rate and rhythm Lungs: clear to auscultation and normal air movement Airway: Mallampati scale class II Neurological: alert and oriented Last oral intake: >/= 8 hours ASA classification: III Emergent: no Anesthetic plan: proceed Anesthesia type and monitoring: general GIVS and standard monitoring Results Review: All pre-operative results and documents have been reviewed as part of the pre-operative evaluation. Informed Consent: The patient's anesthetic plan and its attendant risks and benefits were discussed with the patient/family/POA. Questions were solicited and answers provided to the satisfaction of the patient/family/POA.
[2021-04-10 09:22] VITALS: BP 144/73; PULSE 49; RESP 18; TEMP 36; O2SAT 100
[2021-04-10] MEDS: LACTATED RINGERS 1,000 ML 30 ML IV CONT (09:35)
--- NOTE | 2021-04-10 10:46 | WPDHPUPDATE1 ---
History and Physical Update Update Date/Time: 04/10/21 10:46 History and Physical has been reviewed, including an updated exam of the patient. There are NO changes in the patient's condition. Risks, benefits, and alternatives have been discussed and questions answered. Patient agrees to proceed with procedure.
--- NOTE | 2021-04-10 10:46 | PM.IMHP ---
H&P: HPI History of Present Illness Date/Time: 04/10/21 10:46 Chief Complaint: Portacath in place Narrative: 75 yo man presents for port removal. He has hx of esophageal cancer and has completed chemotherapy. He does not need his port any longer and therefore was referred for removal. Review of Systems Review of Systems: All systems reviewed & are unremarkable except as noted in HPI and below Constitutional: Constitutional: Denies chills, Denies fever(s), Denies headache(s) and Denies weight loss Eyes: Eyes: Denies change in vision ENT: Denies dizziness, Denies headache(s), Denies neck mass and Denies throat swelling Cardiovascular: Cardiovascular: Denies chest pain, Denies lightheadedness and Denies dyspnea Respiratory: Respiratory: Denies cough, Denies dyspnea and Denies wheezing Gastrointestinal: Gastrointestinal: Denies abdominal pain, Denies change in bowel habits, Denies nausea and Denies vomiting Genitourinary: Genitourinary: Denies hematuria and Denies dysuria Musculoskeletal: Musculoskeletal: Reports as per HPI Integumentary/Breasts: Skin/Breast: Reports as per HPI Neurologic: Denies dizziness and Denies headache(s) Allergic/Immunologic: Allergic/Immunologic: Denies throat swelling and Denies wheezing [facility] Past Medical History Medical History (Updated 04/10/21 @ 10:48 by Hi Wood DO) AAA (abdominal aortic aneurysm) 2019 Adult BMI 19-24 kg/sq m Benign essential hypertension Bilateral carotid artery stenosis BMI 20.0-20.9, adult BMI 21.0-21.9, adult Color vision deficiency Elevated homocysteine Encounter for Medicare annual wellness exam Encounter for routine adult health examination with abnormal findings Encounter for routine adult health examination without abnormal findings Encounter for special screening examination for neoplasm of prostate Giant cell carcinoma Hearing loss History of esophageal cancer Hx of renal artery stenosis Hx of renal cell cancer Hx of squamous cell carcinoma Hyperlipidemia Hypothyroidism (acquired) Impacted cerumen of right ear Lung nodule On skilled nursing drug therapy Personal history of nicotine dependence Surgical History Surgical History H/O endovascular stent graft for abdominal aortic aneurysm [facility] 2018 Family History Family History Father Family history of cardiovascular disease Family history of lung cancer Family history of heart disease in male family member before age 55 Mother Family history of dementia Other Diabetes mellitus Family history of malignant neoplasm Social History Social History Smoking packs per day: 1 Smoking cigarettes per day: 20.0 Years smoked: 61 Smoking pack-years: 61.00 Smoking status: Current every day smoker Tobacco type: cigarettes Second hand tobacco smoke exposure: Yes Alcohol intake: never Substance use: never Substance use type: does not use Living arrangements: with family Gender identity (if verbalized by the patient): Male Sexual Orientation (if Verbalized by the Patient): Straight or Heterosexual Spiritual care concerns: No Meds Home Medications and Allergies Home Medications Medication Instructions Recorded Confirmed Type aspirin [Aspir-81] 81 mg PO DAILY 11/28/18 04/10/21 History enalapril maleate 5 mg tablet See Rx Instructions .ROUTE 02/23/20 04/10/21 Rx .COMPLEX #180 tablet rosuvastatin 20 mg tablet See Rx Instructions .ROUTE 07/12/20 04/10/21 Rx .COMPLEX #90 tablet levothyroxine 125 mcg tablet See Rx Instructions .ROUTE 01/04/21 04/10/21 Rx .COMPLEX #90 tablet amlodipine 5 mg PO HS 04/04/21 04/10/21 History metoprolol tartrate 50 mg PO BID 04/04/21 04/10/21 History Allergies Allergy/AdvReac Type Severity Reaction Status Date / Time No Known Allergies Allergy
[2021-04-10] MEDS: ceFAZolin 2 GM/D5W 50 ML 2 GM/50 ML BAG IVPB (11:01)
--- NOTE | 2021-04-10 11:27 | W.PM.PROC2 ---
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 He has been monitored by Oncology and is no longer in need of the port. He now has been referred for Port-A-Cath removal. Description of Procedure Procedure as well as risks, benefits, and alternatives were discussed with the patient. Written consent was obtained and placed in chart prior to procedure. Patient was brought back to surgical suite. He was placed supine on operating table. IV sedation was then administered by the anesthesia department. His right chest and neck area was prepped and draped in sterile fashion using chlorhexidine prep. 1% lidocaine with epinephrine was infiltrated locally over the port. A 3 cm incision was made directly over the old scar for port placement using a 15 blade scalpel. Electrocautery was used for hemostasis and for dissection through the subcutaneous tissue. The capsule around the port was entered and the port was carefully freed up from the surrounding subcutaneous attachments. Port was completely freed up along the pocket and then was carefully removed with the catheter tip intact. Pressure was applied at the base of the neck where the catheter was entering into internal jugular vein. The deep dermis and Laurent's fascia was reapproximated using 3-0 Vicryl simple interrupted sutures. The skin was approximated using 4 Monocryl subcuticular sutures. Exofin glue was then applied on top. The patient was then awakened from anesthesia and transferred to recovery. Estimated Blood Loss 5 Complications No immediate complications Condition stable Disposition same day
[2021-04-10 11:32] VITALS: BP 103/61; PULSE 47; RESP 16; O2SAT 97
[2021-04-10 12:02] VITALS: BP 111/67; PULSE 46; RESP 16
[2021-04-10 12:10] VITALS: BP 110/67; PULSE 46; RESP 16
== END 2021-04-10 12:20 | disposition home or self-care (01) ==
PROVIDERS: PCP Internal Medicine; Visit Provider Surgery
PROC: (CPT 36589; principal; 2021-04-10 11:00)
DX: Z45.2 Encounter for adjustment and management of vascular access device (principal); Z85.038 Personal history of other malignant neoplasm of large intestine; Z92.21 Personal history of antineoplastic chemotherapy; I71.4 Abdominal aortic aneurysm, without rupture; I10 Essential (primary) hypertension; I65.23 Occlusion and stenosis of bilateral carotid arteries; E03.9 Hypothyroidism, unspecified; F17.210 Nicotine dependence, cigarettes, uncomplicated; Z79.82 Long term (current) use of aspirin
CPT/HCPCS: 36590; J0690; J1100; J2405; J2704; J3010; J7120

== ENCOUNTER 2021-09-20 14:30 | Outpatient (CLI) | payer BC, MEDICARE, SELFPAY ==
[2021-09-20 14:50] LABS: Basophils Absolute Auto 0.1 K/mm3 (0.0-0.1); Basophils Percent Auto 1.6 % (0.2-1.2); Eosinophils Absolute Auto 0.5 K/mm3 (0-0.3); Eosinophils Percent Auto 8.9 % (0-4.4); Hematocrit 38.5 % (42.0-52.0); Hemoglobin 12.2 g/dL (14.0-18.0); Immature Granulocyte Absolute 0.01 K/mm3 (0.00-0.031); Immature Granulocyte Percent A 0.2 % (0-0.5); Lymphocytes Percent Auto 21.4 % (18.3-44.2); Mean Corpuscular HGB Conc 31.7 g/dl (32-36); Mean Corpuscular Hemoglobin 30.1 pg (26-34); Mean Corpuscular Volume 95.1 fl (80-100); Mean Platelet Volume 9.3 fl (7.4-10.4); Monocytes Absolute Auto 0.5 K/mm3 (0.1-0.6); Monocytes Percent Auto 9.9 % (2.6-8.5); Platelet Count Result 143 k/mm3 (150-375); Red Blood Count 4.05 M/mm3 (4.6-6.20); Red Cell Distribution Width 14.5 % (11.5-14.5); White Blood Count 5.1 K/mm3 (4.5-10.0)
[2021-09-20 16:41] LABS: Alanine Aminotransferase 19 U/L (6-50); Albumin Level 4.4 g/dL (3.5-5.1); Alkaline Phosphatase 89 U/L (38-126); Anion Gap 9 mmol/L (8-16); Aspartate Amino Transferase 34 U/L (17-59); Bilirubin,Total 0.5 mg/dL (0.2-1.3); Blood Urea Nitrogen 16 mg/dL (9-20); Calcium 9.3 mg/dL (8.4-10.2); Carbon Dioxide 28 mmol/L (22-30); Chloride 103 mmol/L (98-107); Estimated Glomerular Filt Rate 54; Glucose 69 mg/dL (65-110); Potassium 4.3 mmol/L (3.4-5.0); Sodium 140 mmol/L (137-145)
[2021-09-20 16:44] LABS: Cholesterol 133 mg/dL (0-200); HDL Direct 62 mg/dL; Triglycerides 81 mg/dL (<150)
[2021-09-20 16:52] LABS: Hemoglobin A1C 5.7 % (<5.7)
[2021-09-20 16:54] LABS: LDL Cholesterol Direct 45 mg/dL
[2021-09-20 16:56] LABS: Vitamin D 25 Hydroxy 66.2 ng/mL
[2021-09-20 17:14] LABS: Prostate Specific Antigen 0.5 ng/mL (< OR = 4.0)
== END 2021-09-20 14:31 | disposition home or self-care (01) ==
PROVIDERS: PCP Internal Medicine; Visit Provider Internal Medicine Hematology & Oncology
DX: Z12.5 Encounter for screening for malignant neoplasm of prostate (principal); E78.2 Mixed hyperlipidemia; Z13.1 Encounter for screening for diabetes mellitus; Z79.899 Other long term (current) drug therapy; E55.9 Vitamin D deficiency, unspecified; C15.5 Malignant neoplasm of lower third of esophagus
CPT/HCPCS: 36415; 80053; 80061; 82306; 83036; 84153; 85025; G0103

== ENCOUNTER 2021-09-29 08:10 | Outpatient (CLI) | payer BC, MEDICARE, SELFPAY ==
--- NOTE | ~2021-09-29 | CT_ITS ---
EXAMINATION: CT diagnostic chest w con DATE: 09/29/2021 08:49 INDICATION: Cancer of the distal third of the esophagus TECHNIQUE: Transaxial computed tomographic images of the chest were obtained after the administration of 75 cc of Omnipaque 350 intravenous contrast. The dose-length product (DLP) was 144.61 mGy-cm. Ite rative reconstruction was used. COMPARISON: 01/13/2021 FINDINGS: There is severe emphysema. There is mild dependent atelectasis. No pleural effusion or pneu mothorax. There are changes of esophagectomy and gastric pull-through. A stent is noted in the distal stomach. No pathologically enlarged thoracic lymph nodes are identified. The heart size is normal. C alcified coronary artery atherosclerosis is noted. There are endovascular stents in the abdominal aor ta and superior mesenteric artery. IMPRESSION: 1. No evidence of metastatic disease. Reviewed, dictated and finalized at location A.
== END 2021-09-29 08:11 | disposition home or self-care (01) ==
PROVIDERS: PCP Internal Medicine; Visit Provider Internal Medicine Hematology & Oncology
DX: C15.5 Malignant neoplasm of lower third of esophagus (principal); I25.10 Atherosclerotic heart disease of native coronary artery without angina pectoris; J43.9 Emphysema, unspecified
CPT/HCPCS: 71260; Q9967

== ENCOUNTER 2021-10-13 06:39 | Outpatient (CLI) | payer BC, MEDICARE, SELFPAY ==
--- NOTE | ~2021-10-13 | CT_ITS ---
EXAMINATION: CT chest abdomen pelvis w con DATE: 10/13/2021 07:17 INDICATION: Weight loss. A distal third of esophagus. History of renal cell and squamous cell cancer. TECHNIQUE: Computed tomography (CT) of the chest, abdomen, and pelvis was performed with 100 CC Omnip aque 350 intravenous contrast. Automated exposure control and iterative reconstruction technique were employed. Exam dose: 313.49 mGy-cm total exam DLP. COMPARISON: 09/29/2021 CT chest 09/06/[address] scan FINDINGS: CHEST CT: There are severe emphysematous changes of the lungs. There is old pulmonary granulomatous disease inc luding calcified pulmonary granulomas and bilateral calcified hilar and mediastinal lymph nodes. No pulmonary infiltrate or consolidation or pulmonary mass lesion is detected. Normal heart size. Coronary artery calcifications. Status post esophagectomy and gastric pull-through procedure with stent device in the stomach. No hilar or mediastinal mass lesion or lymphadenopathy is noted. Mild thoracic aortic aneurysm, the ascending aorta measuring up to 4 cm diameter, the aortic arch 3.7 cm diameter, the descending thoracic aorta approximately 3.3 cm diameter. No thoracic aortic dissect ion. Plate and screws are noted along the lateral right fifth rib, in addition to some postsurgical deform ity of the right sixth and seventh ribs. ABDOMEN/PELVIS CT: Status post esophagectomy and gastric pull-through. 8.6 mm left hepatic cyst. The liver is otherwise unremarkable. Splenic calcified granulomas. No splen omegaly. No pancreatic mass lesion, calcification or ductal dilatation. The gallbladder is present. N o bile duct dilatation. Approximately 1.1 cm left adrenal lesion, not significantly changed since 12/14/2019. Stable exophytic posterior exophytic upper pole left renal approximately 2.4 cm cyst. Severe right renal atrophy. Stable right lower pole up to 2.6 x 1.4 cm cyst and mildly diminished cur rently approximately 1.7 cm probable hemorrhagic cyst of the right kidney. This previously measured 2 cm on 12/14/2019. Approximately 6.1 cm fusiform infrarenal abdominal aortic aneurysm with aortobiiliac stent. Superior mesenteric and left renal artery stents are again noted. No intraperitoneal or retroperitoneal or pelvic mass lesion or adenopathy or ascites. There is prostate enlargement. The urinary bladder is unremarkable. Mild diverticulosis of the sigmoid colon. No bowel obstruction or intraperitoneal free air. No eviden ce of appendicitis. Status post posterior surgical fusion by pedicle screws and rods at L4-S1 IMPRESSION: Status post esophagectomy and gastric pull-through procedure, with gastric stent Severe emphysema Old granulomatous disease 8.6 mm hepatic cyst Stable approximately 6 x Thoracic aortic aneurysm 1 cm fusiform infrarenal abdominal aortic aneurysm with aortobiiliac stent. Severe mesenteric and left renal artery stents. Severe right renal atrophy, stable or diminished size of right renal cysts Approximately 2.4 cm left renal cyst Prostate enlargement Mild sigmoid colon diverticulosis; no evidence of diverticulitis Status post posterior surgical fusion at L4-S1 Reviewed, dictated and finalized at Location A. Reviewed, dictated and finalized at location B. IMPRESSION: Status post esophagectomy and gastric pull-through procedure, with gastric stent Severe emphysema Old granulomatous disease 8.6 mm hepatic cyst Stable approximately 6 x Thoracic aortic aneurysm 1 cm fusiform infrarenal abdominal aortic aneurysm wit h aortobiiliac stent. Severe mesenteric and left renal artery stents. Severe right renal atrophy, stable or diminished size of right renal cysts Approximately 2.4 cm left renal cyst Prostate enl
== END 2021-10-13 06:40 | disposition home or self-care (01) ==
PROVIDERS: PCP Internal Medicine; Visit Provider Internal Medicine Hematology & Oncology
DX: C15.5 Malignant neoplasm of lower third of esophagus (principal); Z98.890 Other specified postprocedural states; J43.9 Emphysema, unspecified; D71 Functional disorders of polymorphonuclear neutrophils; Q44.6 Cystic disease of liver; I71.2 Thoracic aortic aneurysm, without rupture; N28.1 Cyst of kidney, acquired; N40.0 Benign prostatic hyperplasia without lower urinary tract symptoms; K57.30 Diverticulosis of large intestine without perforation or abscess without bleeding; Z98.1 Arthrodesis status
CPT/HCPCS: 71260; 74177; Q9967

== ENCOUNTER 2022-02-22 14:43 | Outpatient (CLI) | payer BC, MEDICARE, SELFPAY ==
[2022-02-22 14:55] LABS: Basophils Absolute Auto 0.1 K/mm3 (0.0-0.1); Basophils Percent Auto 1.1 % (0.2-1.2); Eosinophils Absolute Auto 0.6 K/mm3 (0-0.3); Eosinophils Percent Auto 10.4 % (0-4.4); Hematocrit 39.2 % (42.0-52.0); Hemoglobin 12.3 g/dL (14.0-18.0); Immature Granulocyte Absolute 0.01 K/mm3 (0.00-0.031); Immature Granulocyte Percent A 0.2 % (0-0.5); Lymphocytes Absolute Auto 1.24 K/mm3 (0.9-3.2); Lymphocytes Percent Auto 20.1 % (18.3-44.2); Mean Corpuscular HGB Conc 31.4 g/dl (32-36); Mean Corpuscular Volume 92.5 fl (80-100); Mean Platelet Volume 9.3 fl (7.4-10.4); Monocytes Absolute Auto 0.5 K/mm3 (0.1-0.6); Monocytes Percent Auto 8.6 % (2.6-8.5); Neutrophils Absolute Auto 3.7 K/mm3 (1.3-6.7); Neutrophils Percent Auto 59.6 % (45.5-73.1); Platelet Count Result 190 k/mm3 (150-375); Red Blood Count 4.24 M/mm3 (4.6-6.20); Red Cell Distribution Width 13.3 % (11.5-14.5); White Blood Count 6.2 K/mm3 (4.5-10.0)
[2022-02-22 16:20] LABS: Alanine Aminotransferase 23 U/L (6-50); Albumin Level 4.3 g/dL (3.5-5.1); Alkaline Phosphatase 90 U/L (38-126); Anion Gap 6 mmol/L (8-16); Aspartate Amino Transferase 35 U/L (17-59); Bilirubin,Total 0.6 mg/dL (0.2-1.3); Blood Urea Nitrogen 14 mg/dL (9-20); Calcium 9.3 mg/dL (8.4-10.2); Carbon Dioxide 28 mmol/L (22-30); Chloride 100 mmol/L (98-107); Cholesterol 151 mg/dL (0-200); Estimated Glomerular Filt Rate > 60; Glucose 111 mg/dL (65-110); HDL Direct 72 mg/dL; Potassium 4.7 mmol/L (3.4-5.0); Sodium 134 mmol/L (137-145); Triglycerides 100 mg/dL (<150)
[2022-02-22 16:31] LABS: LDL Cholesterol Direct 52 mg/dL
[2022-02-22 16:34] LABS: Free T4 Free Thyroxine 1.94 ng/mL (0.78-2.19); Vitamin D 25 Hydroxy 47.1 ng/mL
[2022-02-22 16:52] LABS: Thyroid Stimulating Hormone 0.031 uIU/mL (0.465-4.680)
[2022-02-22 18:49] LABS: Hemoglobin A1C 5.7 % (<5.7)
== END 2022-02-22 14:44 | disposition home or self-care (01) ==
LOC: ANHLAB 14:48
PROVIDERS: PCP Internal Medicine; Visit Provider Internal Medicine
DX: I10 Essential (primary) hypertension (principal); E03.9 Hypothyroidism, unspecified; Z13.1 Encounter for screening for diabetes mellitus; E78.5 Hyperlipidemia, unspecified; E55.9 Vitamin D deficiency, unspecified; Z79.899 Other long term (current) drug therapy
CPT/HCPCS: 36415; 80053; 80061; 82306; 83036; 84439; 84443; 85025

== ENCOUNTER 2022-04-10 06:36 | Outpatient (CLI) | payer BC, MEDICARE, SELFPAY ==
--- NOTE | ~2022-04-10 | CT_ITS ---
Clinical Indication: Esophageal cancer CT Scan of the Chest with Contrast: Technique: Contiguous sections were acquired throughout the chest after intravenous administration of 75 cc of Omnipaque 350. Dose reduction technique was used on this scan by utilizing automated exposu re control and iterative reconstruction technique. The dose-length product (DLP) was 152.27 mGy-cm. COMPARISON: 10/13/2021 Findings: There is no evidence of any significant mediastinal, hilar or axillary lymphadenopathy. There is no f illing defect in the pulmonary arterial tree to suggest pulmonary embolus. Ascending aorta is mildly dilated to 4.5 cm. No aortic dissection. There are atherosclerotic calcifications of the aorta. There is an esophageal stent in the distal third of the esophagus, which is similar to prior exam. Th ere is probable wall thickening of the esophagus about the esophageal stent. There is debris or inges edwar material within the region of the stent/distal esophagus. There is no evidence of pleural or pericardial effusion. Severe emphysema noted. No pulmonary nodules or infiltrates are noted. Images through the upper abdomen reveal aortic stent grafts in the upper abdominal aorta with additio nal stent in the proximal SMA. Upper abdominal aorta measures up to 3.4 cm in maximum diameter. Nativ e right kidney is markedly atrophic. Impression: Esophageal stent again in place, wall thickening of the esophagus about the stent. Correlate with ashia atment history as to whether this represents active esophageal carcinoma about the stent versus possi tanna postoperative/post therapy change. No evidence for metastatic disease. Severe emphysema. Ascending aortic aneurysm measures 4.5 cm in diameter. Upper abdominal aortic aneurysm with stent in place. Reviewed, dictated and finalized at location . [facility] Impression: Esophageal stent again in place, wall thickening of the esophagus about the radha nt. Correlate with treatment history as to whether this represents active esoph ageal carcinoma about the stent versus possibly postoperative/post therapy michelle ge. No evidence for metastatic disease. Severe emphysema. Ascending aortic aneurysm measures 4.5 cm in diameter. Upper abdominal aortic aneurysm with stent in place.
[2022-04-10 07:14] LABS: Estimated Glomerular Filt Rate 49
== END 2022-04-10 06:37 | disposition home or self-care (01) ==
PROVIDERS: PCP Internal Medicine; Visit Provider Internal Medicine Hematology & Oncology
DX: C15.9 Malignant neoplasm of esophagus, unspecified (principal); J43.9 Emphysema, unspecified; I71.21 Aneurysm of the ascending aorta, without rupture; Z95.828 Presence of other vascular implants and grafts
CPT/HCPCS: 71260; Q9967

== ENCOUNTER 2022-04-18 11:16 | Inpatient (IN) | payer BC, MEDICARE, SELFPAY ==
[2022-04-18] VITALS (47 sets, daily range): BP systolic 137–198; BP diastolic 65–117; PULSE 41–78; RESP 10–22; TEMP 36.4–36.7; O2SAT 92–100
--- NOTE | 2022-04-18 | ECG_ITS ---
Measurements Intervals [place] Rate: 49 P: 7 CO: 181 QRS: 55 QRSD: 97 T: 72 QT: 473 QTc: 428 Interpretive Statements SINUS BRADYCARDIA ABNORMAL ECG COMPARED TO ECG 09/22/2018 11:01:37 NO SIGNIFICANT CHANGES Electronically Signed On 04-18-2022 11:46:21 [employer] by Jasper Cedillo D.O.
--- NOTE | 2022-04-18 | ECG_ITS ---
Measurements Intervals [place] Rate: 45 P: 178 UT: 173 QRS: 141 QRSD: 99 T: 119 QT: 488 QTc: 422 Interpretive Statements SINUS BRADYCARDIA LIMB LEAD REVERSAL VOLTAGE CRITERIA FOR LVH MINIMAL Q WAVES- ANTEROLATERAL LEADS ABNORMAL ECG COMPARED TO ECG 04/18/2022 11:22:30 NO SIGNIFICANT CHANGES Electronically Signed On 04-18-2022 13:20:05 KNIFE CUTTER by Jasper Cedillo D.O.
--- NOTE | ~2022-04-18 | CT_ITS ---
Clinical Indication: Chest pain CT Scan of the Chest with Contrast: Technique: Contiguous sections were acquired throughout the chest after intravenous administration of 100 cc of Omnipaque 350. Dose reduction technique was used on this scan by utilizing automated expos ure control and iterative reconstruction technique. The dose-length product (DLP) was 241.43 mGy-cm. COMPARISON: 04/10/2022 Findings: There is extensive thickening of the wall of the aortic arch and descending thoracic aorta, with Houn sfield units in the range of 60-80. No dissection flap clearly evident otherwise. Stable mild aneurys mal dilatation of the ascending aorta, without wall thickening of the ascending aorta. There is no evidence of any significant mediastinal, hilar or axillary lymphadenopathy. There is no f illing defect in the pulmonary arterial tree to suggest pulmonary embolus. Stent of the distal esoph bev is essentially unchanged from prior exam. There is no evidence of pleural or pericardial effusion. Severe emphysema present. No pulmonary nodules or infiltrates are noted. Images through the upper abdomen reveal partially imaged aortic stent graft in the upper abdominal ao rta, with additional stent in the proximal SMA additional probable stent in the proximal left renal a rtery. [place] right kidney is markedly atrophic. Impression: Extensive acute intramural hematoma of the aortic arch and descending thoracic aorta, new from prior exam. Stable mild aneurysmal dilatation of the ascending aorta. No wall thickening of the ascending aorta. No dissection flap of the thoracic aorta identified. Stable severe emphysema. Esophageal stent and vascular stents in the upper abdomen are unchanged. Case discussed with Dr. Puentes at the time of this reading. Reviewed, dictated and finalized at [facility]. TY ASSOCIATE Impression: Extensive acute intramural hematoma of the aortic arch and descending thoracic aorta, new from prior exam. Stable mild aneurysmal dilatation of the ascending aorta. No wall thickening of the ascending aorta. No dissection flap of the thoracic aorta identified. Stable severe emphysema. Esophageal stent and vascular stents in the upper abdomen are unchanged. Case discussed with Dr. Puentes at the time of this reading.
--- NOTE | ~2022-04-18 | XR_ITS ---
EXAMINATION: XR chest 2V DATE: 04/18/2022 12:32 INDICATION: Chest pain. TECHNIQUE: Frontal and lateral views of the chest were obtained. COMPARISON: Chest single view 08/07/2019, chest CT 04/10/2022 FINDINGS: The lungs are hyperexpanded with lucencies, consistent with emphysema. Calcified pulmonary nodules and calcified hilar lymph nodes are consistent with old granulomatous disease. No pleural eff usion or pneumothorax. The heart size is normal. There is are old right rib fractures with plate and screw fixation of a right rib. There is a stent in the distal esophagus. There is a stent graft in ab dominal aorta. There is an electronic implant in the right posterior paraspinal muscles. IMPRESSION: 1. Emphysema. Reviewed, dictated and finalized at location A. BONE GRINDER IMPRESSION: 1. Emphysema.
--- NOTE | ~2022-04-18 | US_ITS ---
EXAMINATION: US venous doppler UE LT DATE: 04/19/2022 16:09 INDICATION: Left upper limb pain. TECHNIQUE: Grayscale ultrasound images without and with compression and Doppler ultrasound images of the left upper extremity veins were obtained. COMPARISON: None. FINDINGS: The visualized portions of the left internal jugular vein, subclavian vein, and axillary vein are pat ent. IMPRESSION: 1. Patent left internal jugular vein, subclavian vein, and axillary vein. Other left upper limb vein s not evaluated due to patient discharge. Reviewed, dictated and finalized at location A. TOP ANALYST IMPRESSION: 1. Patent left internal jugular vein, subclavian vein, and axillary vein. Othe r left upper limb veins not evaluated due to patient discharge.
--- NOTE | 2022-04-18 11:37 | PC.NURSE ---
Patient stated that he took two Aleve before calling EMS as well as one baby aspirin and one 325mg aspirin.
[2022-04-18 11:49] LABS: Alanine Aminotransferase 17 U/L (6-50); Albumin Level 4.1 g/dL (3.5-5.1); Alkaline Phosphatase 81 U/L (38-126); Anion Gap 7 mmol/L (8-16); Aspartate Amino Transferase 26 U/L (17-59); Bilirubin,Total 0.7 mg/dL (0.2-1.3); Blood Urea Nitrogen 17 mg/dL (9-20); Calcium 9.3 mg/dL (8.4-10.2); Carbon Dioxide 27 mmol/L (22-30); Chloride 103 mmol/L (98-107); Estimated CRCL calculation 47 ml/min; Estimated Glomerular Filt Rate > 60; Glucose 136 mg/dL (65-110); Lipase 32 U/L (23-300); Potassium 4.1 mmol/L (3.4-5.0); Sodium 137 mmol/L (137-145)
[2022-04-18 11:56] LABS: INR 1.2; Partial Thromboplastin Time 25.1 SECONDS (22.3-36.8); Prothrombin Time 14.7 Seconds (11.1-14.7)
--- NOTE | 2022-04-18 11:57 | PC.NURSE ---
Patient stated that his pain in chest is now coming back to a 08/20. Dr. Hebert notified.
[2022-04-18 11:59] LABS: Basophils Absolute Auto 0.1 K/mm3 (0.0-0.1); Basophils Percent Auto 1.2 % (0.2-1.2); Eosinophils Absolute Auto 0.4 K/mm3 (0-0.3); Eosinophils Percent Auto 5.9 % (0-4.4); Hematocrit 33.1 % (42.0-52.0); Immature Granulocyte Absolute 0.01 K/mm3 (0.00-0.031); Immature Granulocyte Percent A 0.2 % (0-0.5); Lymphocytes Absolute Auto 0.83 K/mm3 (0.9-3.2); Mean Corpuscular HGB Conc 30.2 g/dl (32-36); Mean Corpuscular Hemoglobin 27.9 pg (26-34); Mean Corpuscular Volume 92.5 fl (80-100); Mean Platelet Volume 9.4 fl (7.4-10.4); Monocytes Absolute Auto 0.5 K/mm3 (0.1-0.6); Monocytes Percent Auto 8.1 % (2.6-8.5); Neutrophils Absolute Auto 4.2 K/mm3 (1.3-6.7); Neutrophils Percent Auto 70.6 % (45.5-73.1); Platelet Count Result 104 k/mm3 (150-375); Red Blood Count 3.58 M/mm3 (4.6-6.20); Red Cell Distribution Width 15.1 % (11.5-14.5); White Blood Count 5.9 K/mm3 (4.5-10.0)
[2022-04-18 12:00] LABS: Troponin I < 0.012 ng/mL (0.000-0.034)
--- NOTE | 2022-04-18 13:09 | PC.NURSE ---
Patient states that his pain is increasing and now has numbness and tingling down his arm. Notified Dr. Hebert.
--- NOTE | 2022-04-18 13:42 | ED.CHESTPAIN ---
HPI - Chest Pain General Chief Complaint: Chest Pain Stated Complaint: chest pain Time Seen by Provider: 04/18/22 13:18 History of Present Illness HPI narrative: Patient is a 76-year-old male with a history of hypertension, hypothyroidism, hyperlipidemia presenting with chest pain. Patient states that starting this morning he developed a dull aching in the center of his chest. States that he was just sitting on his computer when this happened. This continued to worsen so he took 324 megs of aspirin as well as 2 Aleve. He started to feel a bit lightheaded and short of breath so he called EMS. EMS gave him a nitro which improved his pain but he states the pain has not returned. He also complains of intermittent shortness of breath. Denies fevers or chills, headache, numbness or weakness, abdominal pain, vomiting, diarrhea, leg swelling. Does complain of some nausea. Related Data Home Medications Medication Instructions Recorded Confirmed aspirin 81 mg tablet,delayed 81 mg PO DAILY 11/28/18 04/18/22 release (Aspir-) metoprolol tartrate 25 mg tablet 25 mg PO BID 04/18/22 04/18/22 rosuvastatin 20 mg tablet 20 mg PO HS 04/18/22 04/18/22 Allergies Allergy/AdvReac Type Severity Reaction Status Date / Time No Known Allergies Allergy Verified 03/05/22 13:36 Review of Systems Review of Systems: All systems reviewed & are unremarkable except as noted in HPI and below PMFSH Past Medical History Medical History (Updated 04/19/22 @ 16:22 by Sofie Orozco MD) AAA (abdominal aortic aneurysm) 2018 Adult BMI 19-24 kg/sq m Aneurysm of infrarenal abdominal aorta Aortic aneurysm without rupture Ascending aortic aneurysm Benign essential hypertension Bilateral carotid artery stenosis BMI 20.0-20.9, adult BMI 21.0-21.9, adult BMI 22.0-22.9, adult BMI 24.0-24.9, adult Chest pain Chest skin lesion Color vision deficiency Eczema Elevated homocysteine Encounter for Medicare annual wellness exam Encounter for routine adult health examination with abnormal findings Encounter for routine adult health examination without abnormal findings Encounter for special screening examination for neoplasm of prostate Follow up Giant cell carcinoma Hearing loss History of esophageal cancer Chemotherapy May of 2018 Hx of renal artery stenosis Hx of renal cell cancer Hx of squamous cell carcinoma Hyperlipidemia Hypothyroidism (acquired) Impacted cerumen of right ear Lung nodule On longterm drug therapy Orthostatic hypotension Personal history of nicotine dependence Pleural effusion Port-A-Cath in place Rectal bleeding Renal mass Right inguinal hernia Surgical wound present Surgical History Surgical History (Updated 04/18/22 @ 20:02 by Eleni Johns NP) H/O endovascular stent graft for abdominal aortic aneurysm [facility] 2017 H/O esophagectomy X3 H/O hernia repair H/O sinus surgery With cages and screws H/O Spinal surgery Removal of benign tumor History of removal of Port-a-Cath History of tracheostomy Family History Family History Father Family history of cardiovascular disease Family history of lung cancer Family history of heart disease in male family member before age 55 Mother Family history of dementia Other Diabetes mellitus Family history of malignant neoplasm Social History Social History (Updated 04/18/22 @ 20:06 by Eleni Johns NP) Social History: He lives with his and he has 3 children. He is retired from the a self employed contractor. The patient stated that he continues to smoke every day. He states that he typically smokes a half a pack to a pack a cigarettes a day and he has no plans on quitting. Smoking packs per day: 1 Smoking cigarettes per day: 20.0 Years smoked: 61 Smoking pack-years: 61.00 Smoking status: Current every day smoker Tobacco type: cigarettes Second hand tobacco smoke exposure
[2022-04-18] MEDS: NITROGLYCERIN SL 0.4 MG TABLET SUBLINGUAL (13:46)
--- NOTE | 2022-04-18 13:48 | PC.NURSE ---
Patient stated that his pain was 7/10 before 0.4 nitro sublingual was given
--- NOTE | 2022-04-18 13:54 | PC.NURSE ---
Re-assessed patient chest pain and patient stated that his pain was still 7/10 and was having SOB. Patient blood pressure was 155/87. Patient was given another 0.4 nitro sublingual.
--- NOTE | 2022-04-18 14:01 | PC.NURSE ---
Re-assessed patient pain after second nitro. Patient states that his pain is at a 4/10. Patient blood pressure down to 132/78.
[2022-04-18 15:01] LABS: Troponin I < 0.012 ng/mL (0.000-0.034)
--- NOTE | 2022-04-18 15:16 | PM.IMHP ---
H&P: HPI History of Present Illness Date/Time: 04/18/22 15:16 Chief Complaint: Chest pain Narrative: This is a 76-year-old male patient who has a history of esophageal cancer, hypertension, hypothyroidism, hyperlipidemia. The patient had a stress test which was a Lexiscan on 11/17/2018 which was a negative Lexiscan stress test and baseline hypertension. Today the patient came in to the emergency room with complaints of chest pain this started this morning. He started as a dull ache in the center of his chest. The patient was just sitting at the computer when it started. The patient took his normal 324 mg of aspirin as well as Aleve and the pain still continue to get worse. The patient was also complaining of shortness of breath. He had no fever chills no nausea no vomiting no diarrhea no leg swelling. The patient was given aspirin nitro and I can him Apresoline. The patient stated that the chest pain dissipated after he was given those medications and his blood pressure came down. EKG was read as sinus bradycardia with heart rate 45. Patient stated that he is typically bradycardic. This is not new for him. His H&H is 10.0 in 33.1. This is slightly lower than his baseline. Cardiac enzymes are nonreactive x3. Patient is no longer complaining of any chest discomfort. Chest x-ray was read as emphysema. The patient is being admitted to observation status on the date of service of 04/18/2022. Review of Systems Review of Systems: See HPI All systems reviewed & are unremarkable except as noted in HPI and below Constitutional: Constitutional: Reports as per HPI and Reports no additional constitutional complaints Eyes: Eyes: Reports as per HPI and Reports no additional eye complaints ENT: Reports system reviewed and no additional complaints, except as documented and Reports Normal hearing present Cardiovascular: Cardiovascular: Reports no additional cardiovascular complaints Respiratory: Respiratory: Reports no additional respiratory complaints and Reports no additional respiratory complaints Gastrointestinal: Gastrointestinal: Reports as per HPI and Reports no additional gastrointestinal complaints Musculoskeletal: Musculoskeletal: Reports no additional musculoskeletal complaints Integumentary/Breasts: Skin/Breast: Reports system reviewed and no additional complaints, except as docu and Reports as per HPI Neurologic: Reports system reviewed and no additional complaints, except as documented, Reports as per HPI and Reports Normal hearing present Psychiatric: Psychiatric: Reports no additional psychiatric complaints and Reports as per HPI Endocrine: Endocrine: Reports no additional endocrine complaints Hematologic/Lymphatic: Hematologic/Lymphatic: Reports no additional hematologic/lymphatic complaints Allergic/Immunologic: Allergic/Immunologic: Reports no additional allergic/immunologic complaints [facility] Past Medical History Medical History (Updated 04/18/22 @ 20:13 by Eleni Johns NP) AAA (abdominal aortic aneurysm) 2018 Adult BMI 19-24 kg/sq m Aneurysm of infrarenal abdominal aorta Aortic aneurysm without rupture Ascending aortic aneurysm Benign essential hypertension Bilateral carotid artery stenosis BMI 20.0-20.9, adult BMI 21.0-21.9, adult BMI 22.0-22.9, adult BMI 24.0-24.9, adult Chest pain Chest skin lesion Color vision deficiency Eczema Elevated homocysteine Encounter for Medicare annual wellness exam Encounter for routine adult health examination with abnormal findings Encounter for routine adult health examination without abnormal findings Encounter for special screening examination for neoplasm of prostate Follow up Giant cell carcinoma Hearing loss History of esophageal cancer Chemotherapy May of 2018 Hx of renal artery stenosis Hx of renal cell cancer Hx of squamous cell carcinoma Hyperlipidemia Hypothyroidism (acquired) Impacted cerumen of right ear Lung nodule On long-term drug therapy O
[2022-04-18 17:16] LABS: Troponin I < 0.012 ng/mL (0.000-0.034)
[2022-04-18] MEDS: NICOTINE (*PBKC) 21 MG PATCH 1 PATCH TRANSDERM (17:36)
--- NOTE | 2022-04-18 19:57 | ADMGEN ---
This patient, Tino Nunez, was admitted to IMU Room 232-01. Patient/family oriented to hospital policies and general routines including ID bracelet, bed and alarms, visiting hours, pain management, procedures, bathroom and other care routines, personal items, smoking policy, room service/diet, and visiting hours. Information on how to activate the Rapid Response Team has been discussed. Patient/Family are encouraged to report perceived risks to care and to ask questions if they do not understand what they are told or what they should do.
[2022-04-18] MEDS: hydrALAZINE HCL 20 MG/ML VIAL (20:03)
[2022-04-18] MEDS: METOPROLOL TARTRATE 25 MG TABLET PO (21:44)
[2022-04-18] MEDS: PANTOPRAZOLE SODIUM IV 40 MG VIAL IV PUSH (21:44)
[2022-04-18] MEDS: ROSUVASTATIN 10 MG TABLET 20 MG PO (21:44)
[2022-04-19] VITALS (16 sets, daily range): BP systolic 87–189; BP diastolic 49–97; PULSE 56–68; RESP 12–20; TEMP 36.6–36.8; O2SAT 99–100
--- NOTE | 2022-04-19 | ECHO_ITS ---
Patient Info Name: Tino Nunez Age: 76 years : 1945 Gender: Male Ht: 71 in Wt: 143 lbs BSA: 1.79 m2 HR: 63 bpm BP: 147 / 75 mmHg Technical Quality: Good Exam Date: 04/19/2022 9:20 AM Exam Location: [facility] Pulmonary Patient Status: Outpatient Admit Date: 04/18/2022 Staff Ordering Physician: Eleni Johns NP Dinking Machine Operator: Wilfrid Ellis RDCS, RT Attending Provider: Coleman Puentes MD Referring Physician: Andreas GONZALEZ; Exam Type: CA echo doppler color flow Study Info Indications R07.9 - Chest pain, unspecified Complete two-dimensional, color flow and Doppler transthoracic echocardiogram is performed. Strain analysis performed. Summary 1. Complete two-dimensional, color flow and Doppler transthoracic echocardiogram is performed. 2. Left ventricular chamber dimension is normal. 3. Left ventricular systolic function is normal, estimated at 60-65%. 4. There is mild concentric increased left ventricular wall thickness. 5. The left ventricular diastolic function is grade I diastolic dysfunction. 6. Global longitudinal strain is normal at -19.8%. 7. Left atrial chamber dimension is mildly enlarged. 8. There is mild aortic valve sclerosis. 9. No pulmonary hypertension, estimated pulmonary arterial systolic pressure is 34 mmHg. 10. There is trace pulmonic regurgitation. Left Ventricle Global longitudinal strain is normal at -19.8%. Tissue doppler E/e' is not performed. Left ventricular chamber dimension is normal. Left ventricular systolic function is normal, estimated at 60-65%. There is mild concentric increased left ventricular wall thickness. The left ventricular diastolic function is grade I diastolic dysfunction. Right Ventricle Right ventricular chamber dimension is normal. Right ventricular systolic function is normal. Left Atria Left atrial chamber dimension is mildly enlarged. Right Atria Right atrial chamber dimension is normal. Aortic Valve The aortic valve is trileaflet. There is mild aortic valve sclerosis. There is no aortic valve stenosis. There is no aortic valve regurgitation. Pulmonic Valve There is trace pulmonic regurgitation. Mitral Valve There is no mitral valve stenosis. There is no mitral valve regurgitation. Tricuspid Valve There is no tricuspid valve regurgitation. No pulmonary hypertension, estimated pulmonary arterial systolic pressure is 34 mmHg. Pericardium/Pleural There is no pericardial effusion. Inferior Vena Cava Normal inferior vena cava with >50% collapse upon inspiration consistent with normal right atrial pressure, 5 mmHg. Aorta The aortic root size at the sinus of Valsalva is normal. Left Ventricular Outflow Tract Name Value Normal LVOT 2D LVOT Diameter 2.1 cm LVOT Doppler LVOT Peak Gradient 4 mmHg LVOT Mean Gradient 2 mmHg LVOT VTI 19 cm LVOT VTI/AV VTI Ratio 0.9 LVOT Stroke Volume 69 ml LVOT CO 4.1 l/min LVOT
[2022-04-19] MEDS: LEVOTHYROXINE SODIUM 112 MCG TABLET PO (05:47)
[2022-04-19 08:12] LABS: Basophils Percent Auto 0.6 % (0.2-1.2); Eosinophils Absolute Auto 0.2 K/mm3 (0-0.3); Eosinophils Percent Auto 2.4 % (0-4.4); Hematocrit 37.7 % (42.0-52.0); Hemoglobin 11.7 g/dL (14.0-18.0); Immature Granulocyte Absolute 0.02 K/mm3 (0.00-0.031); Immature Granulocyte Percent A 0.3 % (0-0.5); Immature Platelet Fraction Pct 4.7 % (0.9-11.2); Lymphocytes Absolute Auto 0.91 K/mm3 (0.9-3.2); Lymphocytes Percent Auto 12.7 % (18.3-44.2); Mean Corpuscular Hemoglobin 27.8 pg (26-34); Mean Corpuscular Volume 89.5 fl (80-100); Mean Platelet Volume 9.9 fl (7.4-10.4); Monocytes Absolute Auto 0.7 K/mm3 (0.1-0.6); Monocytes Percent Auto 9.4 % (2.6-8.5); Neutrophils Absolute Auto 5.4 K/mm3 (1.3-6.7); Neutrophils Percent Auto 74.6 % (45.5-73.1); Platelet Count Result 135 k/mm3 (150-375); Red Blood Count 4.21 M/mm3 (4.6-6.20); Red Cell Distribution Width 15.3 % (11.5-14.5); White Blood Count 7.2 K/mm3 (4.5-10.0)
[2022-04-19 08:15] LABS: Alanine Aminotransferase 16 U/L (6-50); Albumin Level 4.1 g/dL (3.5-5.1); Alkaline Phosphatase 82 U/L (38-126); Anion Gap 7 mmol/L (8-16); Aspartate Amino Transferase 24 U/L (17-59); Bilirubin,Total 0.9 mg/dL (0.2-1.3); Blood Urea Nitrogen 17 mg/dL (9-20); Calcium 9.4 mg/dL (8.4-10.2); Carbon Dioxide 28 mmol/L (22-30); Chloride 101 mmol/L (98-107); Estimated CRCL calculation 57 ml/min; Estimated Glomerular Filt Rate > 60; Glucose 110 mg/dL (65-110); Lipase 27 U/L (23-300); Magnesium 1.9 mg/dL (1.6-2.3); Potassium 4.2 mmol/L (3.4-5.0); Sodium 136 mmol/L (137-145)
[2022-04-19 09:08] LABS: Thyroid Stimulating Hormone Reflex 0.468 uIU/mL (0.465-4.68)
--- NOTE | 2022-04-19 09:29 | PM.IMPN ---
Progress Note: A&P Assessment and Plan (1) Chest pain: Code(s): R07.9 - Chest pain, unspecified Status: Acute Assessment and Plan: -cardiac enzymes are nonreactive x3 Was hypertensive on arrival to the ER Will stop Lexiscan order History of esophageal cancer Bradycardic on arrival The patient has had a stress test in 2019, 2018, i as well as 2017 and all were negative. The patient does have a history of esophageal cancer his CT from 04/10/2022 was read as the followingsophageal stent again in place, wall thickening of the esophagus about the stent. Correlate with treatment history as to whether this represents active esophageal carcinoma about the stent versus possibly postoperative/post therapy change. No evidence for metastatic disease. Severe emphysema. Ascending aortic aneurysm measures 4.5 cm in diameter. Upper abdominal aortic aneurysm with stent in place. The patient has had 1 stent placed in his abdominal aneurysm. Is noted that the patient has another abdominal aneurysm. Patient stated that he will follow-up with his vascular surgeon. Continue with aspirin and metoprolol CTA with extensive new intramural hematoma without definitive dissection flap. This involves aortic arch and descending aorta Will move him to ICU for nicardipine drip. Bradycardic avoid esmolol drip Discussed with inspector packer Needs transfer to [facility] where his vascular surgery and CT surgery evaluation Initiated with the call for transfer (2) History of esophageal cancer: Code(s): Z85.01 - Personal history of malignant neoplasm of esophagus Status: Acute Assessment and Plan: The patient sees Dr. Huitron. The patient stated he is free from all cancer and that he completed radiation and chemotherapy. The patient has had his Port-A-Cath removed after his completion of chemotherapy (3) Hypothyroidism (acquired): Code(s): E03.9 - Hypothyroidism, unspecified Status: Acute Assessment and Plan: Check thyroid level continue with levothyroxine (4) COPD (chronic obstructive pulmonary disease): Qualifiers: COPD type: unspecified COPD Qualified Code(s): J44.9 - Chronic obstructive pulmonary disease, unspecified Code(s): J44.9 - Chronic obstructive pulmonary disease, unspecified Status: Acute Assessment and Plan: P.r.n. albuterol (5) CKD (chronic kidney disease) stage 3, GFR 30-59 ml/min: Qualifiers: Chronic kidney disease stage 3 subtype: unspecified whether 3a or 3b Qualified Code(s): N18.30 - Chronic kidney disease, stage 3 unspecified Code(s): N18.3 - Chronic kidney disease, stage 3 (moderate) Status: Acute Assessment and Plan: Patient's creatinine is 1.1 with the estimated GFR greater than 60. (6) Benign essential hypertension: Code(s): I10 - Essential (primary) hypertension Status: Acute Assessment and Plan: Continue with metoprolol Optimize blood pressure with nicardipine drip in ICU (7) Hyperlipidemia: Qualifiers: Hyperlipidemia type: mixed hyperlipidemia Qualified Code(s): E78.2 - Mixed hyperlipidemia Code(s): E78.5 - Hyperlipidemia, unspecified Status: Acute Assessment and Plan: Continue with rosuvastatin Subjective Date/time seen: 04/19/22 09:29 Interval history: has a mild chest pain in midsternal area. was resoled last night. cta discussed with radiologist, intensivisit. will initiate nicardipine gtt. called [facility] for transfer. Discussed with Dr. Silveira at [facility] Review of Systems Review of Systems: All systems reviewed & are unremarkable except as noted in HPI and below Exam Narrative: GENERAL: Well-appearing, well-nourished, and in no acute distress. HEAD: Normocephalic, atraumatic. EYES: PERRLA and EOMI. ENT: Nares clear, no rhinorrhea or epistaxis.? Mucous membranes moist. NECK: Supple. CHEST: Clear to auscultation.? No respi
[2022-04-19] MEDS: PANTOPRAZOLE SODIUM IV 40 MG VIAL IV PUSH (09:48)
[2022-04-19] MEDS: METOPROLOL TARTRATE 25 MG TABLET PO (09:48)
[2022-04-19] MEDS: NICOTINE (*PBKC) 21 MG PATCH 1 PATCH TRANSDERM (09:55)
--- NOTE | 2022-04-19 11:16 | PC.NURSE ---
This patient, Tino Nunez, was received from [[id number] ] on 04/19/22 at 1110. Patient/family oriented to unit policies and routines
[2022-04-19] MEDS: niCARdipine 20 MG/200 ML 20 MG/200 ML BAG 50 MG IV CONT ×2 (11:19→11:20)
--- NOTE | 2022-04-19 11:29 | WPDCNINT ---
Assessment and Plan Assessment and plan (1) Intramural aortic hematoma: Code(s): I71.00 - Dissection of unspecified site of aorta Status: Acute Plan Neuro: - No acute issues. CV: - Ascending aortic intramural hematoma: in pt with known hx of ascending aortic aneurysm. Follows with Dr. Andry Silveira at [facility] - on wait list for bed there. Start nicardipine gtt to decrease shearing forces across aortic wall. HR is already low. If chest pain worsens or vitals deteriorate would repeat stat CTA chest to assess for aortic dissection. - Hypertensive emergency: started nicardipine gtt, aim for SBP 100-120 due to above. - HLD: continue statin. Pul: - No acute issues. GI: - No acute issues. Renal: - No acute issues. ID: - No acute issues. Heme/Onc: - Hx of esophageal CA: in remission. Endocrine: - Hypothyroidism: continue levothyroxine. MSK/skin: - No acute issues. DVT ppx: SCDs GI ppx: not indicated Yarn Texture Machine Operator Consult Note Consult date: 04/19/22 Reason for consult: Hypertensive crisis, aortic intramural hematoma HPI: Tino Nunez is a 76 year old male with a history of esophageal CA in remission, ascending aortic aneurysm, HTN, HLD, and hypothyroidism who presented to the ED on 04/18 with chest pain x1 day. Patient states that starting in the morning he developed a dull aching in the center of his chest.? States that he was just sitting on his computer when this happened.?This continued to worsen so he took 324 mg of aspirin as well as 2 Aleve.?He started to feel a bit lightheaded and short of breath so he called EMS.?EMS gave him NTG which improved his pain but he states the pain has not returned.? He also complains of intermittent shortness of breath.? Denies fevers or chills, headache, numbness or weakness, abdominal pain, vomiting, diarrhea, leg swelling.? Does complain of some nausea. CTA in the ED showed: Extensive acute intramural hematoma of the aortic arch and descending thoracic aorta, new from prior exam. Stable mild aneurysmal dilatation of the ascending aorta. No wall thickening of the ascending aorta. No dissection flap of the thoracic aorta identified. Stable severe emphysema. He was markedly hypertensive and was transferred to the ICU for nicardipine gtt. Pt states that he follows with Dr. Andry Silveira at [facility] for his aneurysm and saw him in 01/2022. Pt denies any chest pain currently except with deep breaths. Review of Systems Review of Systems: As per HPI. [facility] Past Medical History Medical History (Updated 04/19/22 @ 13:54 by Stephen Frost DO) AAA (abdominal aortic aneurysm) 2018 Adult BMI 19-24 kg/sq m Aneurysm of infrarenal abdominal aorta Aortic aneurysm without rupture Ascending aortic aneurysm Benign essential hypertension Bilateral carotid artery stenosis BMI 20.0-20.9, adult BMI 21.0-21.9, adult BMI 22.0-22.9, adult BMI 24.0-24.9, adult Chest pain Chest skin lesion Color vision deficiency Eczema Elevated homocysteine Encounter for Medicare annual wellness exam Encounter for routine adult health examination with abnormal findings Encounter for routine adult health examination without abnormal findings Encounter for special screening examination for neoplasm of prostate Follow up Giant cell carcinoma Hearing loss History of esophageal cancer Chemotherapy May of 2018 Hx of renal artery stenosis Hx of renal cell cancer Hx of squamous cell carcinoma Hyperlipidemia Hypothyroidism (acquired) Impacted cerumen of right ear Lung nodule On manager long term care drug therapy Orthostatic hypotension Personal history of nicotine dependence Pleural effusion Port-A-Cath in place Rectal bleeding Renal mass Right inguinal hernia Surgical wound present Surgical History Surgical History (Updated 04/18/22 @ 20:02 by Eleni Johns NP) H/O endovascular stent graft for abdominal aortic aneurysm [facility] 2017 H/O esophagectomy X3 H/O hernia repair H/O sinus surger
[2022-04-19] MEDS: niCARdipine 20 MG/200 ML 20 MG/200 ML BAG 25 MG IV CONT (14:17)
[2022-04-19 14:19] LABS: Anion Gap 10 mmol/L (8-16); Blood Urea Nitrogen 17 mg/dL (9-20); Calcium 9.5 mg/dL (8.4-10.2); Carbon Dioxide 23 mmol/L (22-30); Chloride 101 mmol/L (98-107); Estimated CRCL calculation 47 ml/min; Estimated Glomerular Filt Rate > 60; Glucose 140 mg/dL (65-110); Magnesium 1.9 mg/dL (1.6-2.3); Potassium 3.5 mmol/L (3.4-5.0); Sodium 134 mmol/L (137-145)
--- NOTE | 2022-04-19 15:01 | PC.NURSE ---
Pt transferred to [facility] via [facility]. Nicardipine drip infusing at 2.5mg/hr. Report called to ROSA Vaughn @ [id number]. Family at bedside. All belongings sent with .
--- NOTE | 2022-04-19 17:34 | PM.TDS ---
Transfer Discharge Sum: Prov Provider Date of admission: 04/19/22 09:59 Primary care physician: Jc Arguello MD Admitting clinician: Coleman Puentes MD Consults: 04/19/22 Consult to Physician Routine Comment: Consulting Provider: Stephen Frost Reason for consultation: icu transfer Has provider been notified: Yes DS: Admitting Diagnosis Discharge Date 04/19/22 Admitting Diagnosis chest pain DS: Discharge Diagnosis Discharge Diagnosis (1) Chest pain: Code(s): R07.9 - Chest pain, unspecified Status: Acute (2) History of esophageal cancer: Code(s): Z85.01 - Personal history of malignant neoplasm of esophagus Status: Acute (3) Hypothyroidism (acquired): Code(s): E03.9 - Hypothyroidism, unspecified Status: Acute (4) COPD (chronic obstructive pulmonary disease): Qualifiers: COPD type: unspecified COPD Qualified Code(s): J44.9 - Chronic obstructive pulmonary disease, unspecified Code(s): J44.9 - Chronic obstructive pulmonary disease, unspecified Status: Acute (5) CKD (chronic kidney disease) stage 3, GFR 30-59 ml/min: Qualifiers: Chronic kidney disease stage 3 subtype: unspecified whether 3a or 3b Qualified Code(s): N18.30 - Chronic kidney disease, stage 3 unspecified Code(s): N18.3 - Chronic kidney disease, stage 3 (moderate) Status: Acute (6) Benign essential hypertension: Code(s): I10 - Essential (primary) hypertension Status: Acute (7) Hyperlipidemia: Qualifiers: Hyperlipidemia type: mixed hyperlipidemia Qualified Code(s): E78.2 - Mixed hyperlipidemia Code(s): E78.5 - Hyperlipidemia, unspecified Status: Acute (8) Intramural aortic hematoma: Code(s): I71.00 - Dissection of unspecified site of aorta Status: Acute (9) Hypertension: Code(s): I10 - Essential (primary) hypertension Status: Acute Transfer Discharge Sum: Med Medications Active and Home Medications: Home Medications aspirin 81 mg tablet,delayed release (Aspir-) 81 mg PO DAILY 11/28/18 [History Confirmed 04/18/22] levothyroxine 112 mcg tablet 112 mcg PO DAILY #90 tabs 03/01/22 [Rx Confirmed 04/18/22] metoprolol tartrate 25 mg tablet 25 mg PO BID 04/18/22 [History Confirmed 04/18/22] rosuvastatin 20 mg tablet 20 mg PO HS 04/18/22 [History Confirmed 04/18/22] Transfer Discharge Sum: Hosp Hospital Course Hospital course: Tino Nunez is a 76 year old male who presents to the ER with chest pain # chest pain: -cardiac enzymes are nonreactive x3 Was hypertensive on arrival to the ER History of esophageal cancer Bradycardic on arrival The patient has had a stress test in 2019, 2018, i as well as 2017 and all were negative. The patient does have a history of esophageal cancer his CT from 04/10/2022 was read as the followingsophageal stent again in place, wall thickening of the esophagus about the stent. Correlate with treatment history as to whether this represents active esophageal carcinoma about the stent versus possibly postoperative/post therapy change. No evidence for metastatic disease. Severe emphysema. Ascending aortic aneurysm measures 4.5 cm in diameter. Upper abdominal aortic aneurysm with stent in place. The patient has had 1 stent placed in his abdominal aneurysm.? Is noted that the patient has another abdominal aneurysm.? Patient stated that he will follow-up with his vascular surgeon. Continue with aspirin and metoprolol CTA Done on 04/20/2022 with extensive new intramural hematoma without definitive dissection flap.? This involves aortic arch and descending aorta go to ICU started on nicardipine. Bradycardic avoid esmolol drip Discussed with plate slitter and inspector Needs transfer to [facility] where his vascular surgery and CT surgery evaluation Discussed with vascular surgery at [facility] was accepted eventually was transferred for further ca
== END 2022-04-19 15:00 | disposition short-term general hospital (02) | DRG 300 ==
LOC: ANHED 13:18 → ANHIMU 16:52 → ANHICU 04-19 09:50
PROVIDERS: Emergency Medicine; Internal Medicine Critical Care Medicine; Nurse Practitioner; Admitting Provider Internal Medicine; Emergency Provider Emergency Medicine; PCP Internal Medicine; Visit Provider Internal Medicine
DX: I71.011 Dissection of aortic arch (principal); I16.1 Hypertensive emergency; I71.012 Dissection of descending thoracic aorta; E03.9 Hypothyroidism, unspecified; J43.9 Emphysema, unspecified; N18.30 Chronic kidney disease, stage 3 unspecified; E78.2 Mixed hyperlipidemia; I12.9 Hypertensive chronic kidney disease with stage 1 through stage 4 chronic kidney disease, or unspecified chronic kidney disease; L30.9 Dermatitis, unspecified; F17.210 Nicotine dependence, cigarettes, uncomplicated; Z85.01 Personal history of malignant neoplasm of esophagus; Z85.53 Personal history of malignant neoplasm of renal pelvis; Z79.82 Long term (current) use of aspirin
CPT/HCPCS: 36415; 71046; 71275; 80048; 80053; 83605; 83690; 83735; 84443; 84484; 85025; 85055; 85610; 85730; 93005; 93306; 93971; 96374; 96375; 99285; A9270; C9113; G0378; J0360; Q9967

== ENCOUNTER 2022-05-01 10:02 | Outpatient (CLI) | payer BC, MEDICARE, SELFPAY ==
[2022-05-01 10:26] LABS: Basophils Absolute Auto 0.1 K/mm3 (0.0-0.1); Basophils Percent Auto 1.1 % (0.2-1.2); Eosinophils Absolute Auto 0.6 K/mm3 (0-0.3); Eosinophils Percent Auto 11.4 % (0-4.4); Hematocrit 35.4 % (42.0-52.0); Immature Granulocyte Absolute 0.01 K/mm3 (0.00-0.031); Immature Granulocyte Percent A 0.2 % (0-0.5); Lymphocytes Absolute Auto 0.99 K/mm3 (0.9-3.2); Lymphocytes Percent Auto 17.9 % (18.3-44.2); Mean Corpuscular HGB Conc 31.1 g/dl (32-36); Mean Corpuscular Hemoglobin 27.8 pg (26-34); Mean Corpuscular Volume 89.4 fl (80-100); Monocytes Absolute Auto 0.5 K/mm3 (0.1-0.6); Monocytes Percent Auto 8.3 % (2.6-8.5); Neutrophils Absolute Auto 3.4 K/mm3 (1.3-6.7); Neutrophils Percent Auto 61.1 % (45.5-73.1); Platelet Count Result 440 k/mm3 (150-375); Red Blood Count 3.96 M/mm3 (4.6-6.20); Red Cell Distribution Width 15.9 % (11.5-14.5); White Blood Count 5.5 K/mm3 (4.5-10.0)
[2022-05-01 10:58] LABS: Alanine Aminotransferase 25 U/L (6-50); Alkaline Phosphatase 111 U/L (38-126); Anion Gap 6 mmol/L (8-16); Aspartate Amino Transferase 56 U/L (17-59); Bilirubin,Total 0.9 mg/dL (0.2-1.3); Blood Urea Nitrogen 11 mg/dL (9-20); Calcium 9.2 mg/dL (8.4-10.2); Carbon Dioxide 30 mmol/L (22-30); Chloride 101 mmol/L (98-107); Estimated Glomerular Filt Rate > 60; Glucose 111 mg/dL (65-110); Potassium 4.3 mmol/L (3.4-5.0); Sodium 137 mmol/L (137-145)
[2022-05-01 11:50] LABS: Thyroid Stimulating Hormone 0.595 uIU/mL (0.465-4.680)
[2022-05-01 12:22] LABS: Free T4 Free Thyroxine 2.59 ng/mL (0.78-2.19)
== END 2022-05-01 10:03 | disposition home or self-care (01) ==
LOC: ANHLAB 10:05
PROVIDERS: PCP Internal Medicine; Visit Provider Internal Medicine Hematology & Oncology
DX: E03.9 Hypothyroidism, unspecified (principal); Z79.899 Other long term (current) drug therapy
CPT/HCPCS: 36415; 80053; 84439; 84443; 85025

== ENCOUNTER 2022-05-16 11:17 | Outpatient (CLI) | payer BC, MEDICARE, SELFPAY ==
[2022-05-16 12:03] LABS: Alanine Aminotransferase 21 U/L (6-50); Alkaline Phosphatase 121 U/L (38-126); Anion Gap 8 mmol/L (8-16); Aspartate Amino Transferase 32 U/L (17-59); Bilirubin,Total 0.7 mg/dL (0.2-1.3); Blood Urea Nitrogen 12 mg/dL (9-20); Calcium 9.1 mg/dL (8.4-10.2); Carbon Dioxide 30 mmol/L (22-30); Chloride 99 mmol/L (98-107); Estimated Glomerular Filt Rate 59; Glucose 119 mg/dL (65-110); Potassium 4.5 mmol/L (3.4-5.0); Sodium 137 mmol/L (137-145)
[2022-05-16 12:10] LABS: Prealbumin 13.4 mg/dL (17.6-36.0)
== END 2022-05-16 11:18 | disposition home or self-care (01) ==
LOC: ANHLAB 11:19
PROVIDERS: PCP Internal Medicine; Visit Provider Internal Medicine Hematology & Oncology
DX: I10 Essential (primary) hypertension (principal); R63.4 Abnormal weight loss; R53.81 Other malaise; R53.1 Weakness
CPT/HCPCS: 36415; 80053; 84134

== ENCOUNTER 2022-09-03 14:32 | Outpatient (CLI) | payer BC, MEDICARE, SELFPAY ==
[2022-09-03 14:47] LABS: Basophils Absolute Auto 0.1 K/mm3 (0.0-0.1); Basophils Percent Auto 1.3 % (0.2-1.2); Eosinophils Absolute Auto 0.5 K/mm3 (0-0.3); Eosinophils Percent Auto 10.1 % (0-4.4); Hemoglobin 11.2 g/dL (14.0-18.0); Immature Granulocyte Absolute 0.01 K/mm3 (0.00-0.031); Immature Granulocyte Percent A 0.2 % (0-0.5); Lymphocytes Absolute Auto 1.23 K/mm3 (0.9-3.2); Lymphocytes Percent Auto 22.9 % (18.3-44.2); Mean Corpuscular HGB Conc 31.1 g/dl (32-36); Mean Corpuscular Hemoglobin 28.7 pg (26-34); Mean Corpuscular Volume 92.3 fl (80-100); Mean Platelet Volume 9.1 fl (7.4-10.4); Monocytes Absolute Auto 0.5 K/mm3 (0.1-0.6); Monocytes Percent Auto 8.9 % (2.6-8.5); Neutrophils Percent Auto 56.6 % (45.5-73.1); Platelet Count Result 153 k/mm3 (150-375); Red Cell Distribution Width 16.5 % (11.5-14.5); White Blood Count 5.4 K/mm3 (4.5-10.0)
[2022-09-03 16:27] LABS: Potassium 4.3 mmol/L (3.4-5.0)
[2022-09-03 16:39] LABS: LDL Cholesterol Direct 54 mg/dL; Prealbumin 14.8 mg/dL (17.6-36.0)
[2022-09-03 16:42] LABS: Alanine Aminotransferase 26 U/L (6-50); Albumin Level 3.9 g/dL (3.5-5.1); Alkaline Phosphatase 106 U/L (38-126); Anion Gap 7 mmol/L (8-16); Aspartate Amino Transferase 37 U/L (17-59); Bilirubin,Total 0.5 mg/dL (0.2-1.3); Blood Urea Nitrogen 12 mg/dL (9-20); Calcium 9.3 mg/dL (8.4-10.2); Carbon Dioxide 30 mmol/L (22-30); Chloride 100 mmol/L (98-107); Cholesterol 147 mg/dL (0-200); Estimated Glomerular Filt Rate 59; Glucose 101 mg/dL (65-110); HDL Direct 59 mg/dL; Sodium 137 mmol/L (137-145); Triglycerides 95 mg/dL (<150)
[2022-09-03 16:44] LABS: Free T4 Free Thyroxine 2.08 ng/mL (0.78-2.19)
[2022-09-03 16:59] LABS: Thyroid Stimulating Hormone 0.331 uIU/mL (0.465-4.680)
[2022-09-03 22:11] LABS: Hemoglobin A1C 5.8 % (<5.7)
== END 2022-09-03 14:33 | disposition home or self-care (01) ==
LOC: ANHLAB 14:34
PROVIDERS: PCP Internal Medicine; Visit Provider Internal Medicine
DX: Z13.1 Encounter for screening for diabetes mellitus (principal); R53.1 Weakness; E78.2 Mixed hyperlipidemia; I10 Essential (primary) hypertension; E03.9 Hypothyroidism, unspecified; Z79.899 Other long term (current) drug therapy; Z68.1 Body mass index [BMI] 19.9 or less, adult
CPT/HCPCS: 36415; 80053; 80061; 83036; 84134; 84439; 84443; 85025

== ENCOUNTER 2022-09-10 13:15 | Outpatient (RCR) | payer BC, MEDICARE, SELFPAY ==
--- NOTE | 2022-08-28 11:59 | PTOPEVAL1 ---
Assessment and note entered by Gerald Dudley, PT Evaluation Information Assessment Status Evaluation Diagnosis weakness Subjective Information Patient and his reports he has had multiple medical conditions that have put him in the hospital for multiple stays and that has zapped his strength, endurance, and balance along with atrophied his muscles. Patient has a 30 year old foot drop on the RLE and is curious about an AFO. Reports he is doing better than when the doctor saw him and ordered physical therapy. Reported Pain Level Pain Score 0: Self Report Assessment PT Clinical Summary Jace is a 77 year old male coming into the clinic with a diagnosis of weakness after multiple hospital admissions. Patient has weakness in his SHAREE hip extensors and abductors along with his R foot/ankle. Patient also demonstrates decreased endurance and abnormal gait pattern secondary to R foot drop from back surgery 30 years ago. Physical therapy will work on improving strength and endurance while getting patient started on a walking program and HEP. Plan of Care Interventions Electrical Stimulation,Gait Training,Hot Pack/Cold Pack,Manual Therapy,Neuro Re-education,Patient/ Caregiver Education,Therapeutic Activities, Therapeutic Exercise,Ultrasound Other Interventions cupping, taping, IASTM PT Services Indicated Yes Treatment Frequency and 1x/wk for 4 weeks Duration These treatments will address the objective and functional deficits as defined above. The patient will be advanced safely and appropriately in order for the patient to progress towards his/her prior level of function. Additional exercises will be introduced and as well as a comprehensive home exercise program upon discharge, if needed, ?to ensure carryover of functional gains achieved in the clinic. This treatment plan has been reviewed and agreement upon by the patient.
--- NOTE | 2022-08-28 11:59 | OPREHPOC ---
Outpatient Therapy Plan of Care This is a Multidisciplinary Plan of Care that may contain components documented by all disciplines (PT, OT, and ST.) PT Problem 1 PT Problem #1 Knowledge Deficit PT Goal 1 Goal Independent with HEP Target Visit 4 PT Problem 2 PT Problem #2 Impaired Strength PT Goal 1 Goal SHAREE hip abduction and extension 5/5 Target Visit 4 PT Problem 3 PT Problem #3 Impaired Endurance PT Goal 1 Goal Patient walking at least three times a week for at least 30 minutes at a time.
--- NOTE | 2022-09-24 09:22 | PCPTNOTE ---
Patient called & cancelled scheduled appointment this date due to he has been sick
--- NOTE | 2022-10-14 16:51 | PCPTNOTE ---
Admitting Provider: Attending Provider: Jc Arguello MD Patient:Tino Nunez Date of :1945 Patient has not returned for any further treatments since 09/10/2022, therefore he will be discharged at this time. Patient?s initial visit was on 08/27/2022 14:30 and he had a total of ____3____ visits. The goals have been not met. Thank you for referring this patient to [facility]. Please review, sign, date and return this discharge summary GABINO. I have been updated about the patient's current status and I agree with discharge from the above service at this time. Referring Physician Date
== END 2022-10-17 08:19 | disposition home or self-care (01) ==
LOC: ANHPT 13:15
PROVIDERS: PCP Internal Medicine; Visit Provider Internal Medicine
DX: R63.4 Abnormal weight loss (principal); M62.81 Muscle weakness (generalized)
CPT/HCPCS: 97110; 97161; 97530

== ENCOUNTER 2023-03-04 09:40 | Outpatient (CLI) | payer MEDICARE, SELFPAY ==
--- NOTE | ~2023-03-04 | CT_ITS ---
Clinical Indication: Esophageal cancer CT Scan of the Chest with Contrast: Technique: Contiguous sections were acquired throughout the chest after intravenous administration of 75 cc of Omnipaque 350. Dose reduction technique was used on this scan by utilizing automated exposu re control and iterative reconstruction technique. The dose-length product (DLP) was 167.41 mGy-cm. COMPARISON: 04/19/2022 Findings: There is no evidence of any significant mediastinal, hilar or axillary lymphadenopathy. There is no f illing defect in the pulmonary arterial tree to suggest pulmonary embolus. There is irregular wall th ickening involving the thoracic aortic arch and descending thoracic aorta, overall probably mildly de creased in extent from prior exam. Stent in the distal esophagus is unchanged. Ascending aorta measur es 4.5 cm in diameter. There is no evidence of pleural or pericardial effusion. There is severe emphysema with calcified pulmonary granulomas. Images through the upper abdomen reveal partially imaged stent of the abdominal aorta, the additional stent in the proximal left renal artery and proximal SMA.. Impression: Stable distal esophageal stent, consistent with history of underlying esophageal carcinoma. Improved wall thickening of the thoracic aortic arch and descending thoracic aorta, compatible with e volving chronic atrial hematoma and/or mural thrombus. Severe emphysema. Ascending aortic aneurysm measures 4.5 cm in maximum diameter. Reviewed, dictated and finalized at location . SERVICE CONSULTANT Impression: Stable distal esophageal stent, consistent with history of underlying esophagea l carcinoma. Improved wall thickening of the thoracic aortic arch and descending thoracic ao rta, compatible with evolving chronic atrial hematoma and/or mural thrombus. Severe emphysema. Ascending aortic aneurysm measures 4.5 cm in maximum diameter.
[2023-03-04 10:06] LABS: Estimated Glomerular Filt Rate 37
== END 2023-03-04 09:41 | disposition home or self-care (01) ==
PROVIDERS: PCP Internal Medicine; Visit Provider Internal Medicine Hematology & Oncology
DX: C15.5 Malignant neoplasm of lower third of esophagus (principal); J43.9 Emphysema, unspecified; I71.21 Aneurysm of the ascending aorta, without rupture
CPT/HCPCS: 71260; Q9967

== ENCOUNTER 2023-03-05 14:13 | Outpatient (CLI) | payer MEDICARE, SELFPAY ==
--- NOTE | ~2023-03-05 | CT_ITS ---
EXAMINATION: CT brain wo/w con DATE: 03/05/2023 15:04 INDICATION: Amnesia. TECHNIQUE: Computed tomography (CT) of the head was performed without intravenous contrast. The dose- length product was 1210.67 mGy-cm. COMPARISON: No prior studies for comparison. FINDINGS: There is a large left hemispheric epidural or loculated subdural there is effacement of the left lateral ventricle. Hematoma measuring 2.8 cm with moderate mass effect and midline shift to the right measuring 5 mm. There is a hyperdense focus along the lateral margin of the hematoma, images 3 6-40. This may represent acute superimposed on subacute/chronic hemorrhage. No ventriculomegaly. Basi lar cisterns are patent. IMPRESSION: 1. Large left hemispheric extra-axial hemorrhage which may be epidural or a loculated subdural hemato ma. The varied density of the bleed suggest acute superimposed on subacute or chronic hemorrhage. The re is moderate mass effect with midline shift to the right measuring [address] Brigido Wheeler discussed with Dr. Jc Arguello MD at 03/05/2023 15:14 CREW PERSON. Reviewed, dictated and finalized at location L. PERSON IMPRESSION: 1. Large left hemispheric extra-axial hemorrhage which may be epidural or a loc ulated subdural hematoma. The varied density of the bleed suggest acute superim posed on subacute or chronic hemorrhage. There is moderate mass effect with mid line shift to the right measuring [address] Brigido Wheeler discussed with Dr. Jc Arguello MD at 03/05/2023 15:14 CREW PERSON.
[2023-03-05 14:57] LABS: Estimated Glomerular Filt Rate 35
[2023-03-05 14:57] LABS: Basophils Absolute Auto 0.1 K/mm3 (0.0-0.1); Basophils Percent Auto 1.3 % (0.2-1.2); Eosinophils Absolute Auto 0.6 K/mm3 (0-0.3); Eosinophils Percent Auto 11.8 % (0-4.4); Hematocrit 32.9 % (42.0-52.0); Hemoglobin 10.1 g/dL (14.0-18.0); Immature Granulocyte Absolute 0.01 K/mm3 (0.00-0.031); Immature Granulocyte Percent A 0.2 % (0-0.5); Lymphocytes Absolute Auto 1.43 K/mm3 (0.9-3.2); Lymphocytes Percent Auto 26.7 % (18.3-44.2); Mean Corpuscular HGB Conc 30.7 g/dl (32-36); Mean Corpuscular Hemoglobin 29.1 pg (26-34); Mean Corpuscular Volume 94.8 fl (80-100); Mean Platelet Volume 9.4 fl (7.4-10.4); Monocytes Absolute Auto 0.5 K/mm3 (0.1-0.6); Monocytes Percent Auto 8.8 % (2.6-8.5); Neutrophils Absolute Auto 2.7 K/mm3 (1.3-6.7); Neutrophils Percent Auto 51.2 % (45.5-73.1); Platelet Count Result 138 k/mm3 (150-375); Red Blood Count 3.47 M/mm3 (4.6-6.20); Red Cell Distribution Width 16.1 % (11.5-14.5); White Blood Count 5.4 K/mm3 (4.5-10.0)
[2023-03-05 15:39] LABS: Alanine Aminotransferase 45 U/L (6-50); Albumin Level 3.9 g/dL (3.5-5.1); Alkaline Phosphatase 128 U/L (38-126); Anion Gap 5 mmol/L (8-16); Aspartate Amino Transferase 66 U/L (17-59); Bilirubin,Total 0.7 mg/dL (0.2-1.3); Blood Urea Nitrogen 19 mg/dL (9-20); CRP < 0.5 mg/dL (<1.0); Calcium 9.1 mg/dL (8.4-10.2); Carbon Dioxide 29 mmol/L (22-30); Chloride 101 mmol/L (98-107); Estimated Glomerular Filt Rate 42; Glucose 103 mg/dL (65-110); Potassium 4.4 mmol/L (3.4-5.0); Sodium 135 mmol/L (137-145)
[2023-03-05 15:43] LABS: Appearance Urine Clear (Clear); Bacteria Urine None Seen /hpf; Bilirubin Urine Negative (Negative); Color Urine Yellow (Yellow); Glucose Urine UA Negative (Negative); Ketones Urine Negative (Negative); Leukocyte Esterase Ur Negative LEU/UL (Negative); Nitrate Urine Negative (Negative); Protein Urine 1+ mg/dL (Negative); RBC Urine 0-2 /hpf (0-2); Specific Grav Ur 1.032 (1.001-1.035); Squamous Epithelial Cell Urine None seen /hpf (Few); WBC Urine 0-5 /hpf; pH Urine 6.5 (5.0-9.0)
[2023-03-05 15:48] LABS: Add Urine Microscopic? YES
[2023-03-05 15:49] LABS: Erythrocyte Sedimentation Rate 21 mm/hr (0-20)
[2023-03-05 16:43] LABS: Folic Acid 6.2 ng/mL (2.76->20)
== END 2023-03-05 14:14 | disposition home or self-care (01) ==
LOC: ANHIMG 14:18
PROVIDERS: PCP Internal Medicine; Visit Provider Internal Medicine
DX: R41.3 Other amnesia (principal); R53.1 Weakness; I10 Essential (primary) hypertension; E03.9 Hypothyroidism, unspecified; R41.89 Other symptoms and signs involving cognitive functions and awareness; Z79.899 Other long term (current) drug therapy
CPT/HCPCS: 36415; 70470; 80053; 81001; 82607; 82746; 84207; 84252; 84425; 84439; 84443; 85025; 85652; 86140; Q9967

== ENCOUNTER 2023-03-05 15:30 | Emergency (ER) | payer MEDICARE, SELFPAY ==
[2023-03-05 15:31] VITALS: BP 172/96; PULSE 57; RESP 20; TEMP 36.3; O2SAT 100
--- NOTE | 2023-03-05 15:34 | ECG_ITS ---
Measurements Intervals [place] Rate: 52 P: 83 AL: 166 QRS: -64 QRSD: 113 T: 25 QT: 468 QTc: 436 Interpretive Statements SINUS BRADYCARDIA INCOMPLETE RIGHT BUNDLE BRANCH BLOCK LEFT ANTERIOR FASCICULAR BLOCK CANNOT RULE OUT SEPTAL INFARCT, AGE INDETERMINATE BORDERLINE ST-T WAVE ABNORMALITY- INF/HIGH LAT LEADS BASELINE ARTIFACT- I, II, III, AVR, AVL, AVF, V1-V3 ABNORMAL ECG COMPARED TO ECG 04/18/2022 11:53:35 INCOMPLETE RIGHT BUNDLE-BRANCH BLOCK NOW PRESENT LEFT ANTERIOR FASCICULAR BLOCK NOW PRESENT Electronically Signed On 03-06-2023 6:47:06 COST ACCOUNTING CLERK by Jasper Cedillo D.O.
--- NOTE | 2023-03-05 15:35 | PC.NURSE ---
EDP Dr Juares at bedside discussing treatment options with patient
--- NOTE | 2023-03-05 16:22 | ED.GENADULT ---
HPI - General Adult General Chief complaint: Head Injury Stated complaint: brain bleed from radiology Time Seen by Provider: 03/05/23 15:34 History of Present Illness HPI narrative: 77-year-old male presents to the emergency department for evaluation of worsening mental status over the course of the last month and then acutely worsening mental status and memory loss that started on Saturday. Patient had outpatient follow-up with primary care physician and had an outpatient CT showing a significant subdural hematoma with possible acute component. Patient does have a known aortic aneurysm that is inoperable. Related Data Allergies Allergy/AdvReac Type Severity Reaction Status Date / Time No Known Allergies Allergy Verified 03/05/23 13:16 Review of Systems Review of Systems: All systems reviewed & are unremarkable except as noted in HPI and below [facility] Past Medical History Medical History (Updated 03/06/23 @ 00:01 by Roger Zacarias) AAA (abdominal aortic aneurysm) 2018 Adult BMI 19-24 kg/sq m Adult BMI <19 kg/sq m Aneurysm of infrarenal abdominal aorta Aortic aneurysm without rupture Ascending aortic aneurysm Benign essential hypertension Bilateral carotid artery stenosis BMI 20.0-20.9, adult BMI 21.0-21.9, adult BMI 22.0-22.9, adult BMI 24.0-24.9, adult Chest pain Chest skin lesion CKD (chronic kidney disease) Color vision deficiency Eczema Elevated glucose Elevated homocysteine Encounter for Medicare annual wellness exam Encounter for routine adult health examination with abnormal findings Encounter for routine adult health examination without abnormal findings Encounter for special screening examination for neoplasm of prostate Follow up Generalized weakness Giant cell carcinoma Hearing loss Herpes zoster virus infection of face and ear nerves History of esophageal cancer Chemotherapy May of 2018 Hx of renal artery stenosis Hx of renal cell cancer Hx of squamous cell carcinoma Hyperlipidemia Hypothyroidism (acquired) Impacted cerumen of right ear Low hemoglobin Lung nodule Memory impairment On long-term drug therapy Orthostatic hypotension Pain and swelling of eyelid of right eye Personal history of nicotine dependence Pleural effusion Port-A-Cath in place Rectal bleeding Renal mass Right inguinal hernia Surgical wound present Surgical History Surgical History H/O endovascular stent graft for abdominal aortic aneurysm [facility] 2018 H/O esophagectomy X3 H/O hernia repair H/O sinus surgery With cages and screws H/O Spinal surgery Removal of benign tumor History of removal of Port-a-Cath History of tracheostomy Family History Family History Father Family history of cardiovascular disease Family history of lung cancer Family history of heart disease in male family member before age 55 Mother Family history of dementia Other Diabetes mellitus Family history of malignant neoplasm Social History Social History Social History: He lives with his and he has 3 children. He is retired from the a self employed contractor. The patient stated that he continues to smoke every day. He states that he typically smokes a half a pack to a pack a cigarettes a day and he has no plans on quitting. Smoking packs per day: 1 Smoking cigarettes per day: 20.0 Years smoked: 61 Smoking pack-years: 61.00 Smoking status: Current every day smoker Tobacco type: cigarettes Second hand tobacco smoke exposure: Yes Alcohol intake: never Substance use: never Substance use type: does not use Lack of Transportation: No Lack of Food: Never True Current Housing: I Have Housing Concerned About Future Housing: No Difficulty Paying Gas/Electric Bills: No Difficulty Paying for Meds: No Currently Unemploy
--- NOTE | 2023-03-05 16:38 | PC.NURSE ---
After discussion with EDP, pt refusing treatment and transfer. Pt educated on risks and benefits.
== END 2023-03-05 16:45 | disposition home or self-care (01) ==
LOC: ANHED 16:37
PROVIDERS: Emergency Provider Emergency Medicine; PCP Internal Medicine
DX: I62.00 Nontraumatic subdural hemorrhage, unspecified (principal); I71.9 Aortic aneurysm of unspecified site, without rupture; I70.1 Atherosclerosis of renal artery; I12.9 Hypertensive chronic kidney disease with stage 1 through stage 4 chronic kidney disease, or unspecified chronic kidney disease; N18.9 Chronic kidney disease, unspecified; E78.5 Hyperlipidemia, unspecified; E03.9 Hypothyroidism, unspecified; H53.50 Unspecified color vision deficiencies; F17.210 Nicotine dependence, cigarettes, uncomplicated; Z85.01 Personal history of malignant neoplasm of esophagus; Z85.528 Personal history of other malignant neoplasm of kidney; Z92.21 Personal history of antineoplastic chemotherapy; R00.1 Bradycardia, unspecified; I45.2 Bifascicular block; R94.31 Abnormal electrocardiogram [ECG] [EKG]
CPT/HCPCS: 36415; 70470; 80053; 81001; 82607; 82746; 84207; 84252; 84425; 84439; 84443; 85025; 85652; 86140; 93005; 99283; Q9967

== ENCOUNTER 2023-03-08 14:13 | Outpatient (CLI) | payer MEDICARE, SELFPAY ==
[2023-03-08 14:41] LABS: Basophils Absolute Auto 0.1 K/mm3 (0.0-0.1); Eosinophils Absolute Auto 0.5 K/mm3 (0-0.3); Eosinophils Percent Auto 9.2 % (0-4.4); Hematocrit 32.5 % (42.0-52.0); Hemoglobin 10.3 g/dL (14.0-18.0); Lymphocytes Absolute Auto 0.88 K/mm3 (0.9-3.2); Mean Corpuscular HGB Conc 31.7 g/dl (32-36); Mean Corpuscular Hemoglobin 29.3 pg (26-34); Mean Corpuscular Volume 92.6 fl (80-100); Mean Platelet Volume 9.5 fl (7.4-10.4); Monocytes Absolute Auto 0.5 K/mm3 (0.1-0.6); Monocytes Percent Auto 7.8 % (2.6-8.5); Neutrophils Absolute Auto 3.9 K/mm3 (1.3-6.7); Platelet Count Result 136 k/mm3 (150-375); Red Blood Count 3.51 M/mm3 (4.6-6.20); Red Cell Distribution Width 15.7 % (11.5-14.5); White Blood Count 5.9 K/mm3 (4.5-10.0)
[2023-03-08 16:30] LABS: Iron 72 ug/dL (49-181)
[2023-03-08 16:40] LABS: Percent Iron Saturation 19 % (20-50)
[2023-03-08 16:57] LABS: Alanine Aminotransferase 38 U/L (6-50); Albumin Level 3.9 g/dL (3.5-5.1); Alkaline Phosphatase 110 U/L (38-126); Anion Gap 7 mmol/L (8-16); Aspartate Amino Transferase 50 U/L (17-59); Bilirubin,Total 0.7 mg/dL (0.2-1.3); Blood Urea Nitrogen 17 mg/dL (9-20); Calcium 9.4 mg/dL (8.4-10.2); Carbon Dioxide 26 mmol/L (22-30); Chloride 99 mmol/L (98-107); Estimated Glomerular Filt Rate 42; Glucose 98 mg/dL (65-110); Potassium 4.2 mmol/L (3.4-5.0); Sodium 132 mmol/L (137-145)
[2023-03-08 18:25] LABS: Folic Acid 5.5 ng/mL (2.76->20)
== END 2023-03-08 14:14 | disposition home or self-care (01) ==
PROVIDERS: PCP Internal Medicine; Visit Provider Internal Medicine Hematology & Oncology
DX: D64.9 Anemia, unspecified (principal)
CPT/HCPCS: 36415; 80053; 82607; 82728; 82746; 83540; 83550; 85025